=== PATIENT | female | born 1940 | race Caucasian/White ===

== ENCOUNTER 2025-03-14 14:05 | Inpatient (IN) ==
--- NOTE | 2025-03-14 14:26 | Emergency Department Note ---
Impression & Plan Chest pain, Acute hyponatremia, SOB (shortness of breath) ED Provider Note CHIEF COMPLAINT: Chest pain HISTORY OF PRESENTING ILLNESS: This 85-year-old female patient presents to the emergency department with her daughter for evaluation of chest pain and shortness of breath. The patient has had intermittent episodes of brief exertional chest pain and shortness of breath. However, on 03/06/2025 and yesterday she had more significant episodes of chest pain and shortness of breath that radiated to the right side of her neck. The patient states she has a history of a heart murmur and irregular heart rates at times. She is not on any blood thinners, but does take 81 mg aspirin a day. The patient saw her PCP on 03/07/2025 and had an EKG that was normal per patient. The patient cannot remember her last cardiac workup, but thinks it has been a while. The patient states that the symptoms are worse with walking or exertion. However, she has no symptoms at rest. She denies any abdominal pain, nausea, or vomiting. The patient was recently started on iron because of anemia. She has had some loose stools since starting the iron supplement, but otherwise denies any changes in her bowel movements. She denies any urinary symptoms. I reviewed the patient's PCP office visit note from 03/07/2025 through the [facility] system. The patient had described periodic episodes of chest discomfort with exertion that started 2 weeks prior to the office visit including the worst episode on 03/06/2025 when the patient was walking outside in and out of the gas station to pump gas. She developed substernal chest heaviness that radiated down her left arm and right arms. She had shortness of breath and heart palpitations at the same time. The symptoms lasted up to an hour, but resolved after resting further. EKG in the office showed sinus bradycardia without acute ST or T wave changes. Per the office visit note, the patient follows with cardiology for history of hypertensive heart disease, dyslipidemia, and aortic valve stenosis. Her last echo in 03/2024 suggested moderate aortic stenosis. The patient had a stress test on 04/2023 that was normal. She had a ZIO monitor that showed episodes of potential SVT versus AT, but no clear A-fib or flutter. No significant heart blocks or bradycardia arrhythmias. The readings were similar to her Zio patch from 08/2020. The patient is scheduled to follow-up with cardiology on 05/05/2025. She has had worsening anemia since 11/2024. She had seen GI in 12/2024 to discuss EGD/colonoscopy, but these are not scheduled until 06/2025. REVIEW OF SYSTEMS: See HPI for pertinent positives and pertinent negatives. ALLERGIES: NKDA - has irritation from adhesives MEDICATIONS: 81 mg aspirin, vitamin D supplements, calcium supplements, vitamins, cetirizine, Flonase, Norvasc, Lipitor, carvedilol, Valtrex as needed, valsartan hydrochlorothiazide, iron supplement, omeprazole 40 mg once a day, Cymbalta, Aldactone, Imdur PAST MEDICAL HISTORY: Hypertension, GERD, history of squamous cell carcinoma, history of herpes labialis, osteoporosis, mixed hyperlipidemia, history of basal cell cancer, hypertensive heart disease with chronic diastolic congestive heart failure, cataracts of both eyes, nonrheumatic aortic valve stenosis, chronic kidney disease stage III PHYSICAL EXAM: VITALS: Vitals are noted on the nurse's note and reviewed by myself. GENERAL: Non toxic, in no acute distress, non-diaphoretic. SKIN: Capillary refill <2 sec. EYES: PERRLA. EOMI. Conjunctivae without injection, sclerae without icterus. NOSE: Patent without discharge. MOUTH: Mucous membranes moist. Uvula midline. Airway patent. NECK: Supple without nuchal rigidity. HEART: Regular rate and rhythm without murmurs gallops or rubs. LUNGS: Clear to auscultation bilaterally without wheezes, rales or rhonchi. No retractions or accessory muscle use. ABDOMEN: Positive bowel sounds x 4. Normal tympanic percussion. Soft, nontender to palpation. No masses or hepatosplenomegaly. Gallagher sign negative. No CVA tenderness. No guarding, rigidity, or rebound tenderness. No focal RLQ or LLQ tenderness. NEURO: Patient was alert and oriented. No focal neurological deficits. DIFFERENTIAL DIAGNOSIS: Differential diagnosis includes angina, CA, pericarditis, myocarditis, aortic dissection, pleurisy, pneumothorax, PE, pneumonia, pneumomediastinum, esophagitis, esophageal spasm, GERD, perforated esophagus, perforated duodenal/gastric ulcer, pancreatitis, cholecystitis, costochondritis, musculoskeletal, bronchitis, URI, or others. ED COURSE AND MEDICAL DECISION MAKING: MEDICATIONS GIVEN: Normal saline solution 250 mL IV bolus. Aspirin 324 mg p.o. chewed. MONITOR: Continuous director of cardiac rehabilitation: Order was placed for continuous director of cardiac rehabilitation. Patient was placed on the director of cardiac rehabilitation and continuous pulse ox. Patient was noted to be in normal sinus rhythm at an initial rate of 64 bpm per my interpretation. EKG: EKG was interpreted by myself as sinus bradycardia with first-degree AV block at 49 bpm with no acute ST or T wave changes. INTERPRETATION OF LABS: I interpreted the labs with full lab results as below in the lab section of this note. Laboratory results pertinent to the emergent complaint are discussed in the MDM section below. The patient was advised to follow up with their PCP and/or specialist(s) for further outpatient monitoring and management of any abnormal results. INTERPRETATION OF IMAGING: Imaging studies were interpreted by myself and read by radiology as per the imaging section of this note. The patient was advised to follow up with their PCP and/or specialist(s) for further outpatient management of any non-emergent abnormal findings. Chest x-ray was negative for acute cardiopulmonary etiology. Hiatal hernia present. EXTERNAL RECORDS REVIEWED: I reviewed the patient's outpatient [facility] records as summarized above. CONSULTATIONS: On-call hospitalist [facility] SUMMARY: I examined the patient. The patient has been having periodic episodes of chest pain and shortness of breath with exertion. She had a significant episode on 03/06/2025 and again yesterday. She saw her PCP on 03/07/2025 with a normal EKG. The patient last had a stress test on 04/2023 as well as an echo on 03/2024 with her history of moderate aortic stenosis, but no other acute abnormalities per her PCP visit. The patient does have a history of chronic sinus bradycardia as well. An IV lock was placed and labs were drawn. The patient was given 250 mL normal saline solution bolus. She was given aspirin 324 mg p.o. chewed. She declined any medication for her symptoms while in the emergency department. She states that she only has symptoms with exertion. White blood cell count normal at 9.17. Hemoglobin low at 10.8. The patient's hemoglobin on 03/07/2025 was 11.7. Platelet count normal at 304. Coags were normal. Sodium low at 125. Her sodium on 03/07/2025 was 132. Glucose 123, but CMP otherwise normal. Magnesium normal. High-sensitivity troponin x 2 were normal. Lipase normal. TSH normal. Chest x-ray was negative for acute cardiopulmonary etiology. Hiatal hernia present. I had a meaningful discussion about this patient with Dr. Paredes who agrees with my assessment and the treatment plan. The patient has had exertional chest pain and we feel the patient requires admission for further evaluation and treatment. I spoke with the on-call hospitalist who agreed to admit the patient for further management. Please refer to their dictation for further details. The patient's care was transferred in stable condition. DIAGNOSIS: Chest pain Shortness of breath Hyponatremia Past Med/Surg History Problem List (Updated 03/14/25 @ 22:28 by Cindy Michael PA-C) SOB (shortness of breath) (Acute) Acute hyponatremia (Acute) Acute hyponatremia (HFpEF) heart failure with preserved ejection fraction Chest pain (Acute) Medical History (Updated 03/14/25 @ 22:28 by Cindy Michael PA-C) Anemia SVT (supraventricular tachycardia) Osteoporosis CKD (chronic kidney disease) stage 3, GFR 30-59 ml/min GERD (gastroesophageal reflux disease) Asymptomatic bradycardia HTN (hypertension) Aortic stenosis Surgical History (Updated 03/14/25 @ 19:00 by Camryn Blas MD) Hx of cholecystectomy History of appendectomy Family History (Updated 03/14/25 @ 19:01 by Camryn Blas MD) Other COPD (chronic obstructive pulmonary disease) Coronary heart disease Social History Smoking Status: Never smoker Preferred Language: [place] Feels Safe at Home: Yes Allergies Allergies Allergy/AdvReac Type Severity Reaction Status Date / Time lidocaine Allergy Unknown Unknown - Unverified 03/14/25 17:54 On file w/ [facility] Home Meds Home Medications Medication Instructions Recorded Confirmed amlodipine 10 mg tablet 10 mg PO QAM 03/14/25 03/14/25 atorvastatin 40 mg tablet 40 mg PO QAM 03/14/25 03/14/25 carvedilol 25 mg tablet 25 mg PO BIDWMEAL 03/14/25 03/14/25 duloxetine 30 mg capsule,delayed 30 mg PO DAILY 03/14/25 03/14/25 release isosorbide mononitrate 120 mg 120 mg PO QAM 03/14/25 03/14/25 tablet,extended release 24 hr omeprazole 40 mg capsule,delayed 40 mg PO DAILYBB 03/14/25 03/14/25 release spironolactone 25 mg tablet 12.5 mg PO QAM 03/14/25 03/14/25 valsartan 320 1 tab PO QAM 03/14/25 03/14/25 mg-hydrochlorothiazide 25 mg tablet Results & Data (ED) Vital Signs Vital Signs - 24 hr 03/14/25 14:11 03/14/25 14:29 03/14/25 14:42 Temperature 36.3 C L Temperature Source Oral Pulse Rate 51 L 52 L 53 L Pulse Rate [Apical] Pulse Rate from SpO2 Sensor Pulse Rhythm Regular Respiratory Rate 21 17 Respiratory Effort / Characteristics Non-Labored Spontaneous Respiratory Depth Normal Respiratory Pattern Regular Blood Pressure 116/62 Blood Pressure [Left Arm] Blood Pressure Mean 80 Blood Pressure Mean [Left Arm] Blood Pressure Position [Left Arm] Pulse Oximetry 99 97 Oxygen Delivery Method Room Air Room Air Sepsis Recent Fever Within 48 Hours No Sepsis New/Unexplained Change in Mental Status N/A Sepsis Action Taken by Nursing No Action Required 03/14/25 15:30 03/14/25 15:30 03/14/25 16:00 Temperature Temperature Source Pulse Rate 50 L 55 L 55 L Pulse Rate [Apical] Pulse Rate from SpO2 Sensor 51 L Pulse Rhythm Respiratory Rate 17 13 14 Respiratory Effort / Characteristics Respiratory Depth Respiratory Pattern Blood Pressure 123/65 123/65 137/67 Blood Pressure [Left Arm] Blood Pressure Mean 84 87 106 Blood Pressure Mean [Left Arm] Blood Pressure Position [Left Arm] Pulse Oximetry 98 99 100 Oxygen Delivery Method Room Air Room Air Room Air Sepsis Recent Fever Within 48 Hours Sepsis New/Unexplained Change in Mental Status Sepsis Action Taken by Nursing 03/14/25 16:30 03/14/25 17:00 03/14/25 17:03 Temperature Temperature Source Pulse Rate 50 L 58 L Pulse Rate [Apical] Pulse Rate from SpO2 Sensor 50 L 57 L Pulse Rhythm Respiratory Rate 16 20 Respiratory Effort / Characteristics Respiratory Depth Respiratory Pattern Blood Pressure 134/67 139/73 Blood Pressure [Left Arm] Blood Pressure Mean 89 106 Blood Pressure Mean [Left Arm] Blood Pressure Position [Left Arm] Pulse Oximetry 96 98 Oxygen Delivery Method Room Air Room Air Sepsis Recent Fever Within 48 Hours Sepsis New/Unexplained Change in Mental Status Sepsis Action Taken by Nursing 03/14/25 18:21 03/14/25 18:29 03/14/25 19:20 Temperature Temperature Source Pulse Rate 56 L Pulse Rate [Apical] 56 L Pulse Rate from SpO2 Sensor Pulse Rhythm Respiratory Rate 17 Respiratory Effort / Characteristics Non-Labored Spontaneous Respiratory Depth Normal Respiratory Pattern Regular Blood Pressure Blood Pressure [Left Arm] 117/58 L Blood Pressure Mean Blood Pressure Mean [Left Arm] 77 Blood Pressure Position [Left Arm] Semi-fowlers Pulse Oximetry 97 95 Oxygen Delivery Method Room Air Room Air Sepsis Recent Fever Within 48 Hours Sepsis New/Unexplained Change in Mental Status Sepsis Action Taken by Nursing 03/14/25 19:21 03/14/25 20:17 03/14/25 21:03 Temperature Temperature Source Pulse Rate 66 60 61 Pulse Rate [Apical] Pulse Rate from SpO2 Sensor Pulse Rhythm Respiratory Rate 21 18 20 Respiratory Effort / Characteristics Respiratory Depth Respiratory Pattern Blood Pressure 136/64 136/75 116/48 L Blood Pressure [Left Arm] Blood Pressure Mean 88 99 70 Blood Pressure Mean [Left Arm] Blood Pressure Position [Left Arm] Pulse Oximetry 97 98 96 Oxygen Delivery Method Room Air Room Air Room Air Sepsis Recent Fever Within 48 Hours Sepsis New/Unexplained Change in Mental Status Sepsis Action Taken by Nursing Laboratory Data 03/14/25 14:30 03/14/25 17:39 Lab Results 03/14/25 03/14/25 03/14/25 Range/Units 14:30 17:37 17:39 WBC 9.17 (4.8-10.8) K/ul RBC 3.42 L (4.20-5.40) M/uL Hgb 10.8 L (12.0-16.0) g/dl Hct 31.1 L (37.0-47.0) % MCV 90.9 (80.0-100.0) fL MCH 31.6 (25.0-34.0) pg MCHC 34.7 (32.0-36.0) g/dL RDW Std Deviation 42.2 (36.4-46.3) fL RDW Coeff of [place] 13.0 (11.5-14.5) % Plt Count 304 (130-400) K/uL MPV 8.7 L (9.4-12.4) fL Immature Gran % (Auto) 0.4 % Neut % (Auto) 75.8 % Lymph % (Auto) 8.3 % [place] % (Auto) 11.6 % Eos % (Auto) 3.5 % Baso % (Auto) 0.4 % Neut # (Auto) 6.95 H (1.40-6.50) K/uL Lymph # (Auto) 0.76 L (1.20-3.40) K/uL [place] # (Auto) 1.06 H (0.11-0.59) K/uL Eos # (Auto) 0.32 (0.00-0.50) K/uL Baso # (Auto) 0.04 (0.00-0.20) K/uL Immature Gran # (Auto) 0.04 (0.01-0.20) K/uL PT 10.2 (9.0-12.0) Seconds INR 0.9 (0.9-1.1) APTT 24 (21-31) Seconds PTT Ratio 0.9 Sodium 125 L 126 L (136-145) mmol/L Potassium 5.0 4.5 (3.5-5.1) mmol/L Chloride 90 L 92 L (98-107) mmol/L Carbon Dioxide 28 27 (21-32) mmol/L Anion Gap 7 7 (3-11) BUN 17 17 (6-23) mg/dl Creatinine 1.05 0.93 (0.6-1.2) mg/dl Est Cr Clr Drug Dosing 40.6 45.8 ml/min eGFR 51.75 59.86 BUN/Creatinine Ratio 16.2 18.3 (10-20) Glucose 123 H 117 H (70-99(Fasting)) mg/dl Osmolality 265 L (280-300) mOsm/kg Calcium 9.9 9.6 (8.6-10.3) mg/dl Magnesium 1.9 (1.7-2.4) mg/dl Total Bilirubin 0.7 (0.2-1.0) mg/dl AST 13 (13-39) U/L ALT 11 (7-52) U/L Alkaline Phosphatase 49 (34-104) U/L Troponin I High Sens 3.5 3.7 (0-14) pg/ml B-Natriuretic Peptide 72 (0-100) pg/ml Total Protein 6.6 (6.0-8.3) gm/dl Albumin 4.1 (3.4-5.0) gm/dl Globulin 2.5 (2.5-4.0) gm/dl Albumin/Globulin Ratio 1.6 (0.9-2) Lipase 9 L (11-82) U/L TSH 1.783 (0.300-4.500) uIu/ml Urine Color Yellow Urine Appearance Clear (Clear) Urine pH 7.0 (4.5-7.5) Ur Specific [place] 1.007 (1.000-1.030) Urine Protein Negative (Negative) Urine Glucose (UA) Negative (Negative) Urine Ketones Negative (Negative) Urine Blood Negative (Negative) Urine Nitrite Negative (Negative) Urine Bilirubin Negative (Negative) Urine Urobilinogen Negative (Negative) Ur Leukocyte Esterase 1+ H (Negative) Urine WBC (Auto) 6-10 H (0-5) /hpf Urine RBC (Auto) 0-2 (0-2) /hpf U Hyaline Cast (Auto) 0-2 (0-2) /lpf U Epithel Cells (Auto) 3-5 H (0-2) /hpf Urine Bacteria (Auto) None Seen (None Seen) Urine Osmolality 208 L (500-800) mOsm/kg Urine Sodium 34 mmol/L Urine Potassium 33.2 mmol/L Urine Chloride 38 mmol/L Urine Comment Administered Medications Carvedilol (Carvedilol 25 Mg Tab) 25 mg PO BIDM [facility] Stop: 04/13/25 17:59 Last Admin: 03/14/25 20:01 Dose: 25 mg Documented By: ANNE Heparin Sodium/Dextrose (Heparin 61634 Unit/500 Ml D5w) 25,000 units in 500 mls @ 24 mls/hr IV .[id number] [facility]; Protocol Stop: 04/13/25 18:44 Last Admin: 03/14/25 19:17 Dose: 1,200 units/hr, 24 mls/hr Documented By: ANNE Co-signed By: Discontinued Medications Aspirin (Aspirin Chew 324 Mg) 324 mg PO NOW STA Stop: 03/14/25 14:24 Last Admin: 03/14/25 14:34 Dose: 324 mg Documented By: JUAN MIGUEL Furosemide (Furosemide Inj 20 Mg/2 Ml Vial) 20 mg IV ONE ONE Stop: 03/14/25 17:18 Last Admin: 03/14/25 18:22 Dose: 20 mg Documented By: TRESA Heparin Sodium/Dextrose (Heparin Iv Adult Wt-Based Standard *No* Initial Bolus Protocol) 1 each IV ONE STA; Protocol Stop: 03/14/25 18:30 Last Admin: 03/14/25 19:01 Dose: Not Given Documented By: BONNY Sodium Chloride (Nss) 250 mls @ 999 mls/hr IV .Q16M ONE Stop: 03/14/25 14:38 Last Infusion: 03/14/25 16:16 Dose: Infused Documented By: Admin: 03/14/25 14:35 Dose: 999 mls/hr Documented By: JUAN MIGUEL Ioversol (Optiray 320 125ml) 117 ml IV ONCE ONE Stop: 03/14/25 19:02 Last Admin: 03/14/25 19:02 Dose: 117 ml Documented By: JODI Imaging Data Radiologist's Impression: Chest X-Ray 03/14/25 14:11 XR chest 1V portable CLINICAL HISTORY: Chest pain, nonspecific COMPARISON STUDY: No previous studies for comparison. FINDINGS: Lung volumes are normal. Lungs are clear. There is no pneumothorax or pleural effusion. Cardiac size is normal. A moderate sized hiatal hernia is noted. There is no evidence for pulmonary edema. IMPRESSION: 1. No acute cardiopulmonary findings. 2. Hiatal hernia. ACT 112: Negative or not required by law. Electronically signed by: Donavan Marie M.D. 03/14/2025 2:49 PM Venous Doppler Study 03/14/25 17:17 Clinical History: Swelling Technique: Venous ultrasound evaluation was performed utilizing grayscale, color Doppler and wave form evaluation. Images were also obtained with and without compression Findings: There is apparent occlusive thrombus in the left peroneal vein The bilateral common femoral, superficial femoral, popliteal, and right calf veins demonstrate normal anechoic lumens with full compressibility. Normal flow is seen on color Doppler images. Expected waveforms were produced with augmentation maneuvers Impression: 1. DVT in the left calf 2. No evidence of right leg deep venous thrombosis ACT 112: Positive. There are findings on this exam that require communication between the performing entity and the patient following Patient Test Result Information Act ([place] ACT 112) guidelines. Electronically signed by Edward Nazario 03-14-2025 6:16 PM Chest CTA 03/14/25 18:29 EXAM: CT angio chest PE protocol CLINICAL HISTORY: PE TECHNIQUE: CT angiography of the chest was performed with and without intravenous contrast with the following protocol: axial images with, reconstructed coronal and sagittal images. Non-contrast images were initially acquired, followed by contrast-enhanced images in arterial and venous phases. Intravenous contrast [117ml of 320] was administered using automated injection techniques. Bolus tracking was employed to optimize arterial phase imaging. One of these 3D techniques was utilized: Maximum Intensity Pixel (MIP), 3D Reconstructed Images, Volume Rendered Images, Surface Shaded Rendering. One of the following dose reduction techniques was utilized for this exam: Automated exposure control, adjustment of the mA and/or kV according to patient size, and use of iterative reconstruction. COMPARISON: No prior studies available for comparison FINDINGS: Aorta and Great Vessels: Ascending Aorta: Normal in caliber, no aneurysm, dissection, or significant atherosclerosis. Aortic Arch: Normal in caliber, no aneurysm, dissection. Atherosclerotic changes, Descending Aorta: Normal in caliber, no aneurysm, dissection, or significant atherosclerosis. Pulmonary Arteries: The main pulmonary artery and its branches are patent. No evidence of pulmonary embolism or significant stenosis. Heart: Cardiac Chambers: Normal in size. No evidence of cardiomegaly. Pericardium: No pericardial effusion or thickening. Lungs and Pleura: Few nodules in the right lower lobe measuring up to 5mm. Lungs are clear without evidence of consolidation, collapse, or focal lesions. No pleural effusion. Right posterior pleural thickening. Mediastinum: No mediastinal mass or abnormal lymphadenopathy. Normal appearance of the trachea and central bronchi. Hiatal hernia with herniated proximal and mid stomach. Hilar Structures: Hilar structures are normal without enlargement. Chest Wall: No mass lesions or abnormalities in the chest wall. Vascular Structures: Superior Vena Cava: Patent without evidence of stenosis or thrombus. Inferior Vena Cava: Patent without evidence of stenosis or thrombus. Bones and Soft Tissues: No fractures, lytic, or blastic lesions of the visualized bony structures. Soft tissues are unremarkable. Degenerative changes in the spine. A 3.3 right renal cortical cyst. Small splenic calcification. IMPRESSION: 1. No evidence of pulmonary embolism. 2. Few pulmonary nodules in the right lower lobe measuring up to 5mm. No routine follow up if low risk as per Fleischner Society Guidelines. 3. No consolidation or pleural effusion. 4. Hiatal hernia. Electronically signed by Momo Bran 03-14-2025 8:31 PM Discharge Plan Visit Data Chief Complaint: Chest Pain Stated Complaint: CHEST TIGHTNESS/SOB ED Provider: Gigi Paredes ED Midlevel Provider: Cindy Michael Discharge Problem: Chest pain, Acute hyponatremia, SOB (shortness of breath) Patient Disposition: Admitted As Inpatient Condition: Fair Forms Stand Alone Forms: My [facility] Prescriptions Prescriptions: No Action atorvastatin 40 mg tablet 40 mg PO QAM carvedilol 25 mg tablet 25 mg PO BIDWMEAL omeprazole 40 mg capsule,delayed release(DR/EC) 40 mg PO DAILYBB spironolactone 25 mg tablet 12.5 mg PO QAM isosorbide mononitrate 120 mg tablet extended release 24 hr 120 mg PO QAM amlodipine 10 mg tablet 10 mg PO QAM duloxetine 30 mg capsule,delayed release(DR/EC) 30 mg PO DAILY valsartan-hydrochlorothiazide 320-25 mg tablet 1 tab PO QAM Referrals Referrals: PCP,NO [Physician] - Discharge Problem: Chest pain Qualifiers: Chest pain type: unspecified Qualified Code(s): R07.9 - Chest pain, unspecified
[2025-03-14] MEDS: ASPIRIN CHEW 324 MG PO STA (14:34)
[2025-03-14] MEDS: SODIUM CHLORIDE 0.9% 250 ML IV ONE (14:35)
[2025-03-14 14:45] LABS: Hematocrit (blood only) 31.1 % (37.0-47.0); Hemoglobin 10.8 g/dl (12.0-16.0); Immature Granulocytes # (auto) 0.04 K/uL (0.01-0.20); Immature Granulocytes % (auto) 0.4 %; Mean Corpuscular Hemoglobin 31.6 pg (25.0-34.0); Mean Corpuscular Volume 90.9 fL (80.0-100.0); Platelet Count 304 K/uL (130-400); RDW Standard Deviation 42.2 fL (36.4-46.3); Red Blood Count 3.42 M/uL (4.20-5.40); White Blood Count 9.17 K/ul (4.8-10.8)
--- NOTE | 2025-03-14 14:50 | XRay Report ---
XR chest 1V portable CLINICAL HISTORY: Chest pain, nonspecific COMPARISON STUDY: No previous studies for comparison. FINDINGS: Lung volumes are normal. Lungs are clear. There is no pneumothorax or pleural effusion. Car diac size is normal. A moderate sized hiatal hernia is noted. There is no evidence for pulmonary ted a. IMPRESSION: 1. No acute cardiopulmonary findings. 2. Hiatal hernia. ACT 112: Negative or not required by law. Electronically signed by: Donavan Marie M.D. 03/14/2025 2:49 PM
[2025-03-14 15:07] LABS: Alanine Aminotransferase 11.0 U/L (7-52); Albumin Globulin Ratio 1.6 (0.9-2); Alkaline Phosphatase 49.0 U/L (34-104); Anion Gap 7.0 (3-11); Bilirubin,Total 0.7 mg/dl (0.2-1.0); Blood Urea Nitrogen 17.0 mg/dl (6-23); Calcium 9.9 mg/dl (8.6-10.3); Carbon Dioxide 28.0 mmol/L (21-32); Chloride 90.0 mmol/L (98-107); Creatinine Clr Calc Pharmacy 40.6 ml/min; Globulin 2.5 gm/dl (2.5-4.0); Glucose 123.0 mg/dl (70-99(Fasting)); Lipase 9.0 U/L (11-82); Magnesium 1.9 mg/dl (1.7-2.4); Potassium 5.0 mmol/L (3.5-5.1); Sodium 125.0 mmol/L (136-145); Total Protein 6.6 gm/dl (6.0-8.3)
[2025-03-14 15:34] LABS: INR 0.9 (0.9-1.1); Partial Thromboplastin Time 24 Seconds (21-31); Prothrombin Time 10.2 Seconds (9.0-12.0)
--- NOTE | 2025-03-14 16:12 | Emergency Department Note ---
ED Visit Note I was consulted in regards to the patient's presentation and plan of care by the Advanced Practice Provider. I engaged in a detailed/meaningful discussion with the Advanced Practice Provider in regards to this patient's workup and plan of care. I performed a substantiative portion of the medical decision making following discussion with the Advanced Practice Provider. Please see the Advanced Practice Provider's separate documentation for full details of the patient's visit. I agree with the assessment and plan of Cindy Michael PA-C. Gigi Paredes, DO Emergency Medicine .
--- NOTE | 2025-03-14 16:45 | History & Physical Report ---
Date of Service March 14, 2025 Assessment & Plan (1) Chest pain: (2) Acute hyponatremia: (3) (HFpEF) heart failure with preserved ejection fraction: Plan Ms. An is an 85 year old woman with past medical history remarkable for HFpEF, CKDIII, CAD, aortic valve stenosis, SVT, chronic back pain, recent right meniscus tear, GERD, anemia admitted for evaluation of chest pain. Noted to have hyponatremia, likely multifactorial given multiple medications and ongoing pain etc. Also, noted to have DVT in LLE, therefore Chest CT PE will be ordered to eval for pulm embolism potentially contributing to symptoms. #Atypical angina #Chronic heart failure with preserved EF #Aortic Stenosis BNP 72, trop negative x 3 episodic x 3 weeks, hx of as and HFpEF; does not appear volume overloaded however BLE noted ECHO ordered Trend trops monitor on tele continue Imdur 120mg daily continue Valsartan, d/c combo hctz 2/2 hyponatremia hold spironolactone iso hyponatremia continue amlodipine, consider d/c 2/2 BLE edema #Acute LLE DVT #BLE edema, R>L #Right meniscal tear Right leg chronically edematous per patient, but LLE now swollen Doppler ordered---> acute DVT start heparin drip given concerns of chest pain and newly found DVT will do chest CT PE #Acute hyponatremia multifactorial, possible 2/2 medications--noted to be as low as 126 as op discontinue HCTZ hold spironolactone and duloxetine trend bmp q6 FR 2L s/p lasix x1 consult nephrology #Sinus bradycardia #SVT AV block iso coreg will continue coreg with hold parameter <55 monitor on tele #CKDIII stable at this time avoid nephrotoxic agents #Chronic anemia stable at this time CTM #GERD continue ppi #Ambulatory dysfunction PT/OT DVT heparin drip Full code Froilan WINTER Admit Med tele Admission and Anticipated Discharge Date Admission Date: Time spent evaluating patient, direct bedside care, chart review, placing orders, interpretation of diagnostic studies, discussion with consultants, p atient, and family members, as well as other required patient management activities is 80 minutes. History of Present Illness Chief Complaint: chest pain Primary Care Provider: Meño Mcgovern PA-C Ms. An is an 85 year old woman with past medical history remarkable for HFpEF, CKDIII, CAD, aortic valve stenosis, SVT, chronic back pain, recent right meniscus tear, GERD, anemia presented to [facility] ED due to three weeks of MATA and c hest pain. Patient states she has been experiencing episodes of chest pain for a few weeks. She notes the pain to be like a pressure, but also every so often sharp and stabbing. She reports that intermittently these episodes also have diaphoresis and the sensation like she may faint; however, she has not. She reports intermittent palpitations. She does note that her right lower extremity has been swollen since her meniscal tear, but that her left leg is also swelling too in the last few weeks as well. . Last echo 03/2024 suggested moderate per cardio interpretation.Stress test 04/2023 normal. Her PCP did increase her Imdur from 60mg daily to 120mg daily with no clear reduction in symptoms. She denies fevers chills or other concerns. She reports she is otherwise fairly independent. She denies tobacco use, endorses occasional etoh, and denies illicits. In the ED, vitals were notable for BP of 110s-120s HR of 50s, and O2 sat of high 90s on room air Imaging revealed no pulm edema EKG QTc 397 sinus jose with AVblock ED interventions: asa 324, 250cc Patient to be admitted to med/tele for further evaluation and management of chest pain Allergies Allergy/AdvReac Type Severity Reaction Status Date / Time lidocaine Allergy Unknown Unknown - Unverified 03/14/25 17:54 On file w/ [facility] Home Medications Medication Instructions Recorded Confirmed Type amlodipine 10 mg tablet 10 mg PO QAM 03/14/25 03/14/25 History atorvastatin 40 mg tablet 40 mg PO QAM 03/14/25 03/14/25 History carvedilol 25 mg tablet 25 mg PO BIDWMEAL 03/14/25 03/14/25 History duloxetine 30 mg capsule,delayed 30 mg PO DAILY 03/14/25 03/14/25 History release isosorbide mononitrate 120 mg 120 mg PO QAM 03/14/25 03/14/25 History tablet,extended release 24 hr omeprazole 40 mg capsule,delayed 40 mg PO DAILYBB 03/14/25 03/14/25 History release spironolactone 25 mg tablet 12.5 mg PO QAM 03/14/25 03/14/25 History valsartan 320 1 tab PO QAM 03/14/25 03/14/25 History mg-hydrochlorothiazide 25 mg tablet Past Med/Surg History Problem List (Updated 03/14/25 @ 19:00 by Camryn Blas MD) Acute hyponatremia (HFpEF) heart failure with preserved ejection fraction Chest pain Medical History (Updated 03/14/25 @ 19:00 by Camryn Blas MD) Anemia SVT (supraventricular tachycardia) Osteoporosis CKD (chronic kidney disease) stage 3, GFR 30-59 ml/min GERD (gastroesophageal reflux disease) Asymptomatic bradycardia HTN (hypertension) Aortic stenosis Surgical History (Updated 03/14/25 @ 19:00 by Camryn Blas MD) Hx of cholecystectomy History of appendectomy Family History (Updated 03/14/25 @ 19:01 by Camryn Blas MD) Other COPD (chronic obstructive pulmonary disease) Coronary heart disease Social History Smoking Status: Never smoker Preferred Language: Belarusian Feels Safe at Home: Yes Review of Systems Review of Systems: Constitutional: (-) fever/chills, (-) recent loss of weight, (-) appetite changes, (-) night sweats. Head: (-) headache, (-) dizziness. Eye: (-) blurring of vision, (-) double vision, (-) redness. Ear: (-) hearing loss, (-) discharge, (-) vertigo Nose: (-) discharge, (-) bleeding, (-) congestion, (-) post nasal drip. Throat: (-) sore throat, (-) hoarseness of voice, (-) odynophagia. Cardiovascular: (+) chest pain, (-) palpitations, (-) syncope, (-) orthopnea, (- ) PND, (+) leg swelling. Respiratory: (+) shortness of breath, (-) cough, (-) wheezing, (-) hemoptysis. Neuro: (-) weakness in extremities, (-) numbness, (-) tingling, (-) tremor. Gastrointestinal: (-) belly pain, (-) belly distension, (-) nausea, (-) vomiting, (-) diarrhea, (-) constipation Genitourinary: (-) hematuria, (-) dysuria, (-) polyuria, (-) hesitancy, (-) frequency, (-) urinary incontinence. Musculoskeletal: (-) myalgia, (-) arthralgia. Skin: (-) rashes. Endocrine: (-) heat/cold intolerance. Psychiatry: (-) depression, (-) hallucination. Physical Exam Physical Exam: GENERAL APPEARANCE: AxOx4, generally well-appearing female appears younger than stated age, no acute distress. HEENT: NC, AT. MMM. EOMI, clear conjunctiva, oropharynx clear. NECK: Supple without lymphadenopathy. No stiffness or restricted ROM. HEART: Normal rate and regular rhythm, normal S1/S1, no m/r/g LUNGS: CTAB, moving air well. No crackles or wheezes are heard. ABDOMEN: Soft, nontender, nondistended with good bowel sounds heard. BACK: No CVAT, no obvious deformity. EXTREMITIES: Without cyanosis, clubbing or edema. NEUROLOGICAL: Grossly nonfocal. Alert and oriented, moving all 4 extremities. CN not formally tested but appear grossly intact. Observed to ambulate with normal gait. Skin: Warm and dry without any rash. Results & Data Results & Data Vital Signs (Past 12 Hours) Vital Signs Temp Pulse Resp BP Pulse Ox O2 Del Method 03/14/25 16:00 55 L 14 137/67 100 Room Air 03/14/25 15:30 55 L 13 123/65 99 Room Air 03/14/25 15:30 50 L 17 123/65 98 Room Air 03/14/25 14:42 53 L 17 97 Room Air 03/14/25 14:29 52 L 03/14/25 14:11 36.3 C L 51 L 21 116/62 99 Room Air Laboratory Results Short CBC 03/14/25 Range/Units 14:30 WBC 9.17 (4.8-10.8) K/ul Hgb 10.8 L (12.0-16.0) g/dl Hct 31.1 L (37.0-47.0) % Plt Count 304 (130-400) K/uL BMP 03/14/25 03/14/25 14:30 17:39 Sodium 125 L 126 L Potassium 5.0 4.5 Chloride 90 L 92 L Carbon Dioxide 28 27 BUN 17 17 Creatinine 1.05 0.93 Glucose 123 H 117 H Calcium 9.9 9.6 Liver Function 08/08/25 Range/Units 14:30 Total Bilirubin 0.7 (0.2-1.0) mg/dl AST 13 (13-39) U/L ALT 11 (7-52) U/L Alkaline Phosphatase 49 (34-104) U/L Albumin 4.1 (3.4-5.0) gm/dl Urine 03/14/25 Range/Units 17:37 Urine Color Yellow Urine Appearance Clear (Clear) Urine pH 7.0 (4.5-7.5) Ur Specific [place] 1.007 (1.000-1.030) Urine Protein Negative (Negative) Urine Glucose (UA) Negative (Negative) Diagnostic Findings Chest X-Ray 03/14/25 14:11 XR chest 1V portable CLINICAL HISTORY: Chest pain, nonspecific COMPARISON STUDY: No previous studies for comparison. FINDINGS: Lung volumes are normal. Lungs are clear. There is no pneumothorax or pleural effusion. Cardiac size is normal. A moderate sized hiatal hernia is noted. There is no evidence for pulmonary edema. IMPRESSION: 1. No acute cardiopulmonary findings. 2. Hiatal hernia. ACT 112: Negative or not required by law. Electronically signed by: Donavan Marie M.D. 03/14/2025 2:49 PM Venous Doppler Study 03/14/25 17:17 Clinical History: Swelling Technique: Venous ultrasound evaluation was performed utilizing grayscale, color Doppler and wave form evaluation. Images were also obtained with and without compression Findings: There is apparent occlusive thrombus in the left peroneal vein The bilateral common femoral, superficial femoral, popliteal, and right calf veins demonstrate normal anechoic lumens with full compressibility. Normal flow is seen on color Doppler images. Expected waveforms were produced with augmentation maneuvers Impression: 1. DVT in the left calf 2. No evidence of right leg deep venous thrombosis ACT 112: Positive. There are findings on this exam that require communication between the performing entity and the patient following Patient Test Result Information Act ([place] ACT 112) guidelines. Electronically signed by Edward Nazario 03-14-2025 6:16 PM Medications Administered Home Medications Medication Instructions Recorded Confirmed Last Taken amlodipine 10 mg tablet 10 mg PO QAM 03/14/25 03/14/25 Unknown atorvastatin 40 mg tablet 40 mg PO QAM 03/14/25 03/14/25 Unknown carvedilol 25 mg tablet 25 mg PO BIDWMEAL 03/14/25 03/14/25 Unknown duloxetine 30 mg capsule,delayed 30 mg PO DAILY 03/14/25 03/14/25 Unknown release isosorbide mononitrate 120 mg 120 mg PO QA 03/14/25 03/14/25 Unknown tablet,extended release 24 hr omeprazole 40 mg capsule,delayed 40 mg PO DAILYBB 03/14/25 03/14/25 Unknown release spironolactone 25 mg tablet 12.5 mg PO [facility] 03/14/25 03/14/25 Unknown valsartan 320 1 tab PO [facility] 03/14/25 03/14/25 Unknown mg-hydrochlorothiazide 25 mg tablet Active Medications Generic Name Dose Route Start Last Admin Trade Name Freq PRN Reason Stop Dose Admin Heparin Sodium/Dextrose 25,000 units in 500 mls @ 24 mls/hr 03/14/25 18:45 03/14/25 19:17 Heparin 07721 Unit/500 Ml D5w IV 04/13/25 18:44 1,200 units/hr .[id number] ELENA 24 mls/hr Administration Protocol 1,200 UNITS/HR
[2025-03-14 17:20] LABS: Thyroid Stimulating Hormone 1.783 uIu/ml (0.300-4.500)
--- NOTE | 2025-03-14 17:45 | Electrocardiogram Report ---
Test Reason : Blood Pressure : */* mmHG Vent. Rate : 49 BPM Atrial Rate : 49 BPM P-R Int : 236 ms QRS Dur : 86 ms QT Int : 440 ms P-R-T Axes : 59 44 58 degrees QTcB Int : 397 ms Sinus bradycardia with 1st degree A-V block Abnormal ECG No previous ECGs available Confirmed by George Jarvis ([id number]) on 03/14/2025 5:44:55 PM Referred By: Meño Mcgovern Confirmed By: George Jarvis
[2025-03-14 17:57] LABS: Appearance Urine Clear (Clear); Bacteria Urine Automated None Seen (None Seen); Cast Urine Automated 0-2 /lpf (0-2); Glucose Urine UA Negative (Negative); RBC Urine Automated 0-2 /hpf (0-2)
[2025-03-14 18:14] LABS: Anion Gap 7.0 (3-11); Blood Urea Nitrogen 17.0 mg/dl (6-23); Calcium 9.6 mg/dl (8.6-10.3); Carbon Dioxide 27.0 mmol/L (21-32); Chloride 92.0 mmol/L (98-107); Creatinine Clr Calc Pharmacy 45.8 ml/min; Glucose 117.0 mg/dl (70-99(Fasting)); Potassium 4.5 mmol/L (3.5-5.1); Sodium 126.0 mmol/L (136-145)
--- NOTE | 2025-03-14 18:17 | Ultrasound Report ---
Clinical History: Swelling Technique: Venous ultrasound evaluation was performed utilizing grayscale, color Doppler and wave form evaluation. Images were also obtained with and without compression Findings: There is apparent occlusive thrombus in the left peroneal vein The bilateral common femoral, superficial femoral, popliteal, and right calf veins demonstrate normal anechoic lumens with full compressibility. Normal flow is seen on color Doppler images. Expected waveforms were produced with augmentation maneuvers Impression: 1. DVT in the left calf 2. No evidence of right leg deep venous thrombosis ACT 112: Positive. There are findings on this exam that require communication between the performing entity and the patient following Patient Test Result Information Act ([place] ACT 112) guidelines. Electronically signed by Edward Nazario 03-14-2025 6:16 PM
[2025-03-14] MEDS: FUROSEMIDE INJ 20 MG/2 ML VIAL IV ONE (18:22)
[2025-03-14] MEDS: Heparin IV Adult Wt-Based Standard *NO* INITIAL Bolus Protocol IV STA (19:01)
[2025-03-14] MEDS: OPTIRAY 320 125ml IV ONE (19:02)
[2025-03-14] MEDS: HEPARIN 25000 UNIT/500 ML D5W 25,000 UNITS/500 ML BAG IV SCH (19:17)
--- NOTE | 2025-03-14 20:31 | CT Scan Report ---
EXAM: CT angio chest PE protocol CLINICAL HISTORY: PE TECHNIQUE: CT angiography of the chest was performed with and without intravenous contrast with the following protocol: axial images with, reconstructed coronal and sagittal images. Non-contrast images were initially acquired, followed by contrast-enhanced images in arterial and venous phases. Intravenous contrast [117ml of 320] was administered using automated injection techniques. Bolus tracking was employed to optimize arterial phase imaging. One of these 3D techniques was utilized: Maximum Intensity Pixel (MIP), 3D Reconstructed Images, Volume Rendered Images, Surface Shaded Rendering. One of the following dose reduction techniques was utilized for this exam: Automated exposure control, adjustment of the mA and/or kV according to patient size, and use of iterative reconstruction. COMPARISON: No prior studies available for comparison FINDINGS: Aorta and Great Vessels: Ascending Aorta: Normal in caliber, no aneurysm, dissection, or significant atherosclerosis. Aortic Arch: Normal in caliber, no aneurysm, dissection. Atherosclerotic changes, Descending Aorta: Normal in caliber, no aneurysm, dissection, or significant atherosclerosis. Pulmonary Arteries: The main pulmonary artery and its branches are patent. No evidence of pulmonary embolism or significant stenosis. Heart: Cardiac Chambers: Normal in size. No evidence of cardiomegaly. Pericardium: No pericardial effusion or thickening. Lungs and Pleura: Few nodules in the right lower lobe measuring up to 5mm. Lungs are clear without evidence of consolidation, collapse, or focal lesions. No pleural effusion. Right posterior pleural thickening. Mediastinum: No mediastinal mass or abnormal lymphadenopathy. Normal appearance of the trachea and central bronchi. Hiatal hernia with herniated proximal and mid stomach. Hilar Structures: Hilar structures are normal without enlargement. Chest Wall: No mass lesions or abnormalities in the chest wall. Vascular Structures: Superior Vena Cava: Patent without evidence of stenosis or thrombus. Inferior Vena Cava: Patent without evidence of stenosis or thrombus. Bones and Soft Tissues: No fractures, lytic, or blastic lesions of the visualized bony structures. Soft tissues are unremarkable. Degenerative changes in the spine. A 3.3 right renal cortical cyst. Small splenic calcification. IMPRESSION: 1. No evidence of pulmonary embolism. 2. Few pulmonary nodules in the right lower lobe measuring up to 5mm. No routine follow up if low risk as per Fleischner Society Guidelines. 3. No consolidation or pleural effusion. 4. Hiatal hernia. Electronically signed by Moom Bran 03-14-2025 8:31 PM
[2025-03-14] MEDS ORDERED: NITROGLYCERIN SL 0.4 MG/TAB TAB SL PRN (23:11)
[2025-03-14] MEDS: ACETAMINOPHEN 325 MG TAB PO PRN (23:56)
[2025-03-15 01:32] LABS: ANTI-Xa, UFH(UnfractionatedHep 0.59 IU/ml (0.3-0.7)
[2025-03-15 06:12] LABS: Hematocrit (blood only) 29.1 % (37.0-47.0); Hemoglobin 10.0 g/dl (12.0-16.0); Mean Corpuscular Hemoglobin 31.3 pg (25.0-34.0); Mean Corpuscular Volume 91.2 fL (80.0-100.0); Platelet Count 279 K/uL (130-400); RDW Standard Deviation 42.0 fL (36.4-46.3); Red Blood Count 3.19 M/uL (4.20-5.40); White Blood Count 6.21 K/ul (4.8-10.8)
[2025-03-15 06:32] LABS: Magnesium 1.9 mg/dl (1.7-2.4)
[2025-03-15 07:37] LABS: ANTI-Xa, UFH(UnfractionatedHep 0.93 IU/ml (0.3-0.7)
[2025-03-15] MEDS: SPIRONOLACTONE 12.5 MG TAB PO SCH (08:05)
[2025-03-15] MEDS: APIXABAN 5 MG TABLET PO SCH (08:05)
[2025-03-15] MEDS: ISOSORBIDE MONO EXTENDED REL 60 MG TABCR PO SCH (08:07)
[2025-03-15] MEDS: ATORVASTATIN 40 MG TAB PO SCH (08:07)
[2025-03-15] MEDS: VALSARTAN 80 MG TAB PO SCH (08:07)
--- NOTE | 2025-03-15 08:38 | Cardiology Consultation ---
Date of Consultation March 15, 2025 Assessment & Plan (1) Chest pain: (2) SOB (shortness of breath): (3) Aortic stenosis: (4) (HFpEF) heart failure with preserved ejection fraction: (5) Coronary artery disease: (6) HTN (hypertension): (7) Dyslipidemia: Plan 85 year old female who presented to [facility] ED on 03/14/25 for evaluation of dyspnea on exertion and chest pain for past three weeks. Symptoms started after she was admitted to [facility] ED (11/25/24) for ongoing generalized weakness and recurrent falls. 1. Chest pain 2. Dyspnea on exertion 3. Moderate aortic stenosis 4. Hypertensive heart disease with dynamic LVOT obstruction, mild NOHEMI and mild mitral regurgitation 5. Sinus bradycardia -Worsening dyspnea on exertion, exertional chest discomfort, and lightheadedness possibly secondary to progressive aortic stenosis and LVOT obstruction -Does not appear significantly volume overloaded upon examination -Borderline low blood pressure this morning -Sinus bradycardia/rhythm with rates in 50-60s upon telemetry review -Chest CTA (03/14/25) demonstrated no consolidation or pleural effusion -ECHO pending today to reassess aortic valve gradients and LVOT obstruction -Reduced carvedilol dose from 25 mg to 12.5 mg twice daily -Continue valsartan, amlodipine, and spironolactone as per current regimen 7. Mild, non-obstructive CAD per cardiac catheterization (2011) -Exertional chest discomfort possibly secondary to progressive aortic stenosis and LVOT obstruction -Remains asymptomatic with no recurrent chest discomfort -EKG upon admission with no acute ischemic changes -High-sensitivity troponin negative 8. Acute DVT -Continue Eliquis as prescribed -Will defer to primary team for ongoing management Case discussed and coordinated with Dr. Recinos. Please see Dr. Recinos notes for further recommendations. I spent a total of 45 minutes coordinating, documenting, and providing care for this patient excluding time spent in the performance of separately billed services or time spent by another provider/QHP. [facility] Department of Cardiology Supervising Physician Co-Signing Physician Notes I spent a total of 50 minutes on the date of service in preparation, delivery, and documentation of the care provided to this patient, excluding any time spent in the performance of separately billed services. I have personally performed a history and physical examination on the patient. I have reviewed the advance practitioner's documentation, and I agree with, and take responsibility for the plan of care. History of Present Illness Reason for Consultation: Chest pain Requesting Physician: Camryn Blas MD Attending Physician: Mark Diaz DO History of Present Illness 85 year old female who presented to [facility] ED on 03/14/25 for evaluation of dyspnea on exertion and chest pain for past three weeks. Seen by cardiology today for evaluation of chest pain. She felt like symptoms started after she was admitted to [facility] ED (11/25/24) for ongoing generalized weakness and recurrent falls. Has had worsening lightheadedness and weakness since ED visit. Her blood pressure has been low at home with systolics in 100-110s. Has also noticed low heart rates in 40s. Denies syncope. Recently developed difficulty breathing with minimal activity such as pumping gas a few weeks ago. Has had worsening dyspnea on exertion and exertional chest discomfort for the past three weeks. Feels intermittent, sharp mid-upper chest discomfort that radiates to her jaw at rest. Denies associated nausea, diaphoresis, or tachy palpitations. She has felt like she is more bloated and legs feel heavy. Denies orthopnea, PND, worsening edema, or recent weight gain. She notes significant family history of valvular disease. She had recurrent strep throat infections during childhood and was told that she had rheumatic fever at age 12. Denies tobacco, alcohol, or illicit drug use. Past Medical History: 1. Moderate aortic stenosis 2. 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 Mild non-obstructive CAD per cardiac catheterization (2011) 4. Dyslipidemia 5. Mild carotid artery stenosis 6. Sinus bradycardia Allergies Allergy/AdvReac Type Severity Reaction Status Date / Time lidocaine Allergy Unknown Unknown - Unverified 03/14/25 17:54 On file w/ [facility] Home Medications Medication Instructions Recorded Confirmed Type amlodipine 10 mg tablet 10 mg PO QAM 03/14/25 03/14/25 History atorvastatin 40 mg tablet 40 mg PO QAM 03/14/25 03/14/25 History carvedilol 25 mg tablet 25 mg PO BIDWMEAL 03/14/25 03/14/25 History duloxetine 30 mg capsule,delayed 30 mg PO DAILY 03/14/25 03/14/25 History release isosorbide mononitrate 120 mg 120 mg PO QAM 03/14/25 03/14/25 History tablet,extended release 24 hr omeprazole 40 mg capsule,delayed 40 mg PO DAILYBB 03/14/25 03/14/25 History release spironolactone 25 mg tablet 12.5 mg PO QAM 03/14/25 03/14/25 History valsartan 320 1 tab PO QAM 03/14/25 03/14/25 History mg-hydrochlorothiazide 25 mg tablet Patient History Medical History (Updated 03/15/25 @ 12:00 by Mark Diaz DO) Anemia SVT (supraventricular tachycardia) Osteoporosis CKD (chronic kidney disease) stage 3, GFR 30-59 ml/min GERD (gastroesophageal reflux disease) Asymptomatic bradycardia HTN (hypertension) Aortic stenosis Surgical History (Updated 03/14/25 @ 19:00 by Camryn Blas MD) Hx of cholecystectomy History of appendectomy Family History (Updated 03/14/25 @ 19:01 by Camryn Blas MD) Other COPD (chronic obstructive pulmonary disease) Coronary heart disease Social History Smoking Status: Former smoker Second Hand Exposure: No; Do You Dip or Chew Tobacco: No; Hx Alcohol Use: Yes Alcohol type: wine Hx Substance Use: No Preferred Language: Thai Communication Ability: Effective 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 All others negative other than those noted in the HPI. CONSTITUTIONAL: No change in weight, No weakness, No fatigue, No fevers, No sweats or chills. HEENT: No visual changes, No epistaxis, No bleeding gums, No dysphagia, PULMONARY: +shortness of breath. No cough, sputum, or hemoptysis, No wheezing, and No recent change in breathing. CARDIOVASCULAR: +chest pain, dyspnea on exertion, edema. No palpitations, No syncope, No claudication, No calf pain. GASTROINTESTINAL: No change in appetite, No abdominal pain, No change in bowel habits, No significant heartburn, No nausea, No vomiting, No diarrhea, No constipation, No blood in stools or black tarry stools, No dysphagia. HEMATOLOGIC: No abnormal bleeding and No bruising. NEUROLOGICAL: +lightheadedness, falls. No dizziness, Normal balance, No headaches, and No weakness. PSYCH: No sleep disturbances, No mood changes. Physical Exam Physical Exam: Vital signs within normal limits as above. General: Well developed and nourished. No acute distress. A+Ox3. HEENT: Normocephalic. Atraumatic. EOMI. Conjunctiva and sclera clear. NECK: Trachea midline. No thyromegaly. No carotid bruits. No JVD. Carotid upstrokes are brisk. Heart: RRR. S2 noted. Grade II/ systolic murmur. No rubs or gallops. PMI non displaced. Lungs: No acute respiratory distress. Clear to auscultation. No wheezes.No rhonchi. No rales. Abdomen: Normal bowel sounds. Soft. Nontender. No abdominal bruits. Extremities: Normal capillary refill. Trace BLE edema. No clubbing or cyanosis. Pulses: radial=2/4, dorsal pedis=2/4. Skin: Warm and dry. NEURO: No focal deficits. PSYCH: Appropriate affect and insight. Results & Data Vital Signs (Past 12 Hours) Vital Signs Temp Pulse Pulse Resp BP BP Pulse Ox 03/15/25 07:36 36.3 C L 61 18 145/70 H 97 03/15/25 03:29 36.4 C L 61 18 139/54 L 95 03/14/25 23:30 03/14/25 23:30 36.3 C L 56 L 18 124/47 L 97 03/14/25 23:19 55 L 03/14/25 23:11 36.3 C L 56 L 21 124/47 L 97 03/14/25 22:33 55 L 03/14/25 22:00 55 L 20 127/59 L 03/14/25 21:03 61 20 116/48 L 96 O2 Del Method 03/15/25 07:36 Room Air 03/15/25 03:29 Room Air 03/14/25 23:30 Room Air 03/14/25 23:30 Room Air 03/14/25 23:19 03/14/25 23:11 Room Air 03/14/25 22:33 03/14/25 22:00 03/14/25 21:03 Room Air Laboratory Results Cardiac Enzymes 03/14/25 03/14/25 Range/Units 14:30 17:39 AST 13 (13-39) U/L Troponin I High Sens 3.5 3.7 (0-14) pg/ml B-Natriuretic Peptide 72 (0-100) pg/ml Coagulation 03/14/25 03/14/25 Range/Units 14:30 17:39 PT 10.2 (9.0-12.0) Seconds APTT 24 (21-31) Seconds B-Natriuretic Peptide 72 (0-100) pg/ml CBC 03/14/25 03/15/25 Range/Units 14:30 05:38 WBC 9.17 6.21 (4.8-10.8) K/ul RBC 3.42 L 3.19 L (4.20-5.40) M/uL Hgb 10.8 L 10.0 L (12.0-16.0) g/dl Hct 31.1 L 29.1 L (37.0-47.0) % Plt Count 304 279 (130-400) K/uL Neut # (Auto) 6.95 H (1.40-6.50) K/uL Lymph # (Auto) 0.76 L (1.20-3.40) K/uL [place] # (Auto) 1.06 H (0.11-0.59) K/uL Eos # (Auto) 0.32 (0.00-0.50) K/uL Baso # (Auto) 0.04 (0.00-0.20) K/uL Comprehensive Metabolic Panel 03/14/25 03/14/25 Range/Units 14:30 17:39 Sodium 125 L 126 L (136-145) mmol/L Potassium 5.0 4.5 (3.5-5.1) mmol/L Chloride 90 L 92 L (98-107) mmol/L Carbon Dioxide 28 27 (21-32) mmol/L BUN 17 17 (6-23) mg/dl Creatinine 1.05 0.93 (0.6-1.2) mg/dl Glucose 123 H 117 H (70-99(Fasting)) mg/dl Calcium 9.9 9.6 (8.6-10.3) mg/dl AST 13 (13-39) U/L ALT 11 (7-52) U/L Alkaline Phosphatase 49 (34-104) U/L Total Protein 6.6 (6.0-8.3) gm/dl Albumin 4.1 (3.4-5.0) gm/dl Intake and Output 03/14/25 03/15/25 03/15/25 22:59 06:59 14:59 Intake Total 250 / 250 309.2 / 309.2 Output Total 1100 / 1100 Balance -850 / -850 309.2 / 309.2 Intake: IV 250 / 250 309.2 / 309.2 Heparin 47314 Unit/500 ml D5w 309.2 / 309.2 25,000 units In 500 ml @ 1,200 UNITS/HR 24 mls/hr IV .[id number] ELENA Rx#:[id number] Sodium Chloride 0.9% 250 ml @ 250 / 250 999 mls/hr IV .Q16M ONE Rx#: [id number] Output: Urine 1100 / 1100 Other: # Unmeasured Voids 1 Weight 77.8 kg Weight Measurement Method Built in [facility] Diagnostic Findings EKG done 03/14/25 personally reviewed and demonstrated sinus bradycardia with 1st degree AV block with rate 49 beats per minute and QTc 497 ms. ECHO 03/26/24 The left ventricular cavity size is normal. The LV wall thickness is moderately increased (concentric). The basal septum is thickened and angulated consistent with sigmoid septum. The left ventricular wall motion is normal. The qualitative LV ejection fraction is >70% (hyperdynamic). There is resting flow acceleration above left ventricular outflow tract, with inducible gradient by Valsalva maneuver reflecting obstruction at mid ventricular level. There is chordal systolic anterior motion The inducible peak instantaneous left ventricular outflow tract gradient is 125 mm Hg. The aortic valve is moderately calcified. The aortic valve opening is moderately reduced. Image and Doppler assessment of aortic stenosis severity is discordant: Mild to moderate aortic stenosis is present. Mild secondary mitral regurgitation is present. Moderate tricuspid regurgitation is present. There is no evidence of pulmonary hypertension. Compared to prior study of August 03, 2023, there is no significant change. PG Care Time/CCT Total # of Minutes Spent Total Time Spent with Patient: Total time spent is greater than 50% in coordination of care (as documented) at patient's floor/unit and/or counseling patient: [place] [address] IN/OBS CONSULT LVL 4,60M Patient Type New Diagnoses Chest pain R07.9 Chest pain type: unspecified SOB (shortness of breath) R06.02 Aortic stenosis I35.0 (HFpEF) heart failure with preserved ejection fraction I50.30 Coronary artery disease I25.10 HTN (hypertension) I10 Dyslipidemia E78.5 Time Spent (min) 60 (1) Chest pain Chest pain type: unspecified Qualified Code(s): R07.9 - Chest pain, unspecified
[2025-03-15 10:15] LABS: Anion Gap 9.0 (3-11); Blood Urea Nitrogen 17.0 mg/dl (6-23); Calcium 9.4 mg/dl (8.6-10.3); Carbon Dioxide 27.0 mmol/L (21-32); Chloride 93.0 mmol/L (98-107); Creatinine Clr Calc Pharmacy 41.7 ml/min; Glucose 106.0 mg/dl (70-99(Fasting)); Potassium 4.5 mmol/L (3.5-5.1); Sodium 129.0 mmol/L (136-145)
--- NOTE | 2025-03-15 11:10 | Nephrology Consultation ---
Date of Consultation March 15, 2025 Assessment & Plan (1) Acute hyponatremia: 85 year old female with PMHx significant for CAD, chronic HFpEF, aortic valve stenosis, SVT, CKD stage III, chronic back pain, recent right meniscus tear, GERD, and anemia who presented to [facility] ED on 03/14/25 for evaluation of dyspnea on exertion and chest pain for past three weeks.Labs were significant for sodium of 125, she was on Valsartan + HCTZ AND spirolactone. Valsartan has been continued and HCTZ has been stopped.She has baseline ckd 3a. Acute hyponatremia multifactorial, 2/2 HCTZ and spirolactone, duloxetine Cannot comment about the Chronicity as no previous labs in system. Continue to hold HCTZ and spirolactone and duloxetine trend bmp q12, target 134 until 5.00 pm today FR 2L urine Osmol/ fractional excretion of uric acid If her oxygen demand increases she can ge started on torsemide 20 mg daily. (2) (HFpEF) heart failure with preserved ejection fraction: Diuretic as above (3) Chest pain: History of Present Illness Reason for Consultation: Hyponatremia Attending Physician: Mark Diaz DO History of Present Illness 85 year old woman with past medical history remarkable for HFpEF, CKDIII, CAD, aortic valve stenosis, SVT, chronic back pain,HFeEF., GERD, who was admitted with chest pain. ER labs were significant for hyponatremia(125). she was on Valsartan + hctz 320+25, Spirolactone 12.5 mg daily.She admitted to drinking " excessive water" She was also noted to have DVT in LLE,CT PE ruled out Pulmonary embolism. Chest x clovis showed no , acute cardiopulmonry findings.BP is acceptable her urine output has been 1110 mls since admission Allergies Allergy/AdvReac Type Severity Reaction Status Date / Time lidocaine Allergy Unknown Unknown - Unverified 03/14/25 17:54 On file w/ [facility] Home Medications Medication Instructions Recorded Confirmed Type amlodipine 10 mg tablet 10 mg PO QAM 03/14/25 03/14/25 History atorvastatin 40 mg tablet 40 mg PO QAM 03/14/25 03/14/25 History carvedilol 25 mg tablet 25 mg PO BIDWMEAL 03/14/25 03/14/25 History duloxetine 30 mg capsule,delayed 30 mg PO DAILY 03/14/25 03/14/25 History release isosorbide mononitrate 120 mg 120 mg PO QAM 03/14/25 03/14/25 History tablet,extended release 24 hr omeprazole 40 mg capsule,delayed 40 mg PO DAILYBB 03/14/25 03/14/25 History release spironolactone 25 mg tablet 12.5 mg PO QAM 03/14/25 03/14/25 History valsartan 320 1 tab PO QAM 03/14/25 03/14/25 History mg-hydrochlorothiazide 25 mg tablet Patient History Medical History (Updated 03/15/25 @ 12:00 by Mark Diaz DO) Anemia SVT (supraventricular tachycardia) Osteoporosis CKD (chronic kidney disease) stage 3, GFR 30-59 ml/min GERD (gastroesophageal reflux disease) Asymptomatic bradycardia HTN (hypertension) Aortic stenosis Surgical History (Updated 03/14/25 @ 19:00 by Camryn Blas MD) Hx of cholecystectomy History of appendectomy Family History (Updated 03/14/25 @ 19:01 by Camryn Blas MD) Other COPD (chronic obstructive pulmonary disease) Coronary heart disease Social History Smoking Status: Former smoker Second Hand Exposure: No; Do You Dip or Chew Tobacco: No; Hx Alcohol Use: Yes Alcohol type: wine Hx Substance Use: No Preferred Language: Indonesian Communication Ability: Effective Master Control Engineer Required: No Beliefs That Will Affect Care: None Current Living Situation: Alone Current Living Situation Comment: Lives alone beside daughter's house Feels Safe at Home: Yes Safety Concerns: Feels Safe At This Time Assistive Devices: Cane and Walker Review of Systems 2 Review of Systems: All systems reviewed & are unremarkable except as noted in HPI & below Physical Exam 2 Physical Exam: Constitutional: Alert, nontoxic HEENT: Mucous membranes moist. Lungs: Clear to auscultation, decreased, no wheezes rales or rhonchi CV: S1-S2, regular, systolic murmur Abdomen: Soft, nontender, nondistended Extremities: 1+ pitting edema Neuro: No focal deficits Psych: Cooperative, normal mood Results & Data Vital Signs (Past 12 Hours) Vital Signs Temp Pulse Pulse Resp BP Pulse Ox O2 Del Method 03/15/25 07:36 36.3 C L 61 18 145/70 H 97 Room Air 03/15/25 03:29 36.4 C L 61 18 139/54 L 95 Room Air 03/14/25 23:30 Room Air 03/14/25 23:30 36.3 C L 56 L 18 124/47 L 97 Room Air 03/14/25 23:19 55 L 03/14/25 23:11 36.3 C L 56 L 21 124/47 L 97 Room Air Laboratory Results 03/15/25 05:38 03/15/25 05:38 (3) Chest pain Chest pain type: unspecified Qualified Code(s): R07.9 - Chest pain, unspecified
--- NOTE | 2025-03-15 11:55 | Hospitalist Progress Note ---
Date of Service March 15, 2025 Assessment & Plan (1) Left ventricular outflow obstruction: (2) Hyponatremia with decreased serum osmolality: (3) Aortic stenosis: (4) Acute deep vein thrombosis of left lower extremity: (5) Symptomatic bradycardia: (6) (HFpEF) heart failure with preserved ejection fraction: (7) Coronary artery disease: (8) CKD (chronic kidney disease) stage 3, GFR 30-59 ml/min: Plan Patient 85-year-old female presents with a constellation of symptoms. High suspicion symptoms related to valvular disease and left ventricular outflow obstruction exacerbated by bradycardia that may be medication induced and some volume overload from patient's increased water intake and hyponatremia. Hyponatremia due to excessive water intake, hydrochlorothiazide. Continue fluid restriction, discontinue hydrochlorothiazide Await echocardiogram for updated function of the heart, cardiology consult pending I discontinue heparin, transition to Eliquis for left lower extremity DVT. Suspect this is provoked. Patient states that she really has not been ambulating all that much due to symptoms of shortness of breath, lightheadedness and dizziness and a bad right knee. Reviewed nephrology consultation Decreased Coreg in the setting of bradycardia that seems to potentially be symptomatic Therapies Monitor electrolytes and renal function Admission and Anticipated Discharge Date Admission Date: March 14, 2025 Subjective Patient reports a little bit of shortness of breath with activity. This has been progressing over the last few weeks. She also states that she has been drinking a lot of water because she was having lightheadedness and dizziness and people thought that she was dehydrated. She reports she has not seen her cardio logist for quite some time but does know how she has some significant valvular issues. Physical Exam Physical Exam: Constitutional: Alert, nontoxic HEENT: Mucous membranes moist. Lungs: Clear to auscultation, decreased, no wheezes rales or rhonchi CV: S1-S2, regular, systolic murmur Abdomen: Soft, nontender, nondistended Extremities: 1+ pitting edema Neuro: No focal deficits Psych: Cooperative, normal mood Results & Data Results & Data Vital Signs (Past 12 Hours) Vital Signs Temp Pulse Resp BP Pulse Ox O2 Del Method 03/15/25 11:04 36.3 C L 51 L 18 104/51 L 98 Room Air 03/15/25 07:36 36.3 C L 61 18 145/70 H 97 Room Air 03/15/25 03:29 36.4 C L 61 18 139/54 L 95 Room Air Diagnostic Findings Reviewed imaging, laboratory and diagnostic studies. Pertinent findings as below. CTA of the chest negative for PE no significant pulmonary edema or effusions CBC stable Sodium 129 Creatinine 1.02 Troponins negative x 2 sets TSH 1.78 Echocardiogram pending
[2025-03-15 15:38] LABS: Uric Acid 6.7 mg/dl (2.6-7.2)
[2025-03-16 06:56] LABS: Anion Gap 6.0 (3-11); Blood Urea Nitrogen 22.0 mg/dl (6-23); Calcium 9.2 mg/dl (8.6-10.3); Carbon Dioxide 29.0 mmol/L (21-32); Chloride 96.0 mmol/L (98-107); Creatinine Clr Calc Pharmacy 38.8 ml/min; Glucose 99.0 mg/dl (70-99(Fasting)); Magnesium 2.0 mg/dl (1.7-2.4); Potassium 4.4 mmol/L (3.5-5.1); Sodium 131.0 mmol/L (136-145)
--- NOTE | 2025-03-16 08:56 | Cardiology Progress Note ---
Date of Service March 16, 2025 Assessment & Plan (1) Chest pain: (2) SOB (shortness of breath): (3) Aortic stenosis: (4) (HFpEF) heart failure with preserved ejection fraction: (5) Coronary artery disease: (6) HTN (hypertension): (7) Dyslipidemia: Plan 85 year old female who presented to [facility] ED on 03/14/25 for evaluation of dyspnea on exertion and chest pain for past three weeks. 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 Last ECHO (03/26/24) outpatient demonstrated moderate left ventricular hypertrophy, dynamic LVOT with gradient 125 mmHg, moderately calcified aortic valve with mild-moderate aortic stenosis, mild secondary mitral regurgitation, and moderate tricuspid regurgitation. Symptoms started after she was admitted to [facility] ED (11/25/24) for ongoing generalized wea kness and recurrent falls. Blood pressure has been low at home with systolics in 100-110s. Has also noticed low heart rates in 40s. Noted significant family history of valvular disease with recurrent strep throat infections during childhood and possible history of rheumatic fever at age 12. ECHO yesterday (03/15) revealed preserved LVEF 55-60% and moderate aortic stenosis. It was noted that valve appeared significantly calcified and may be discrepancy between 2D and Doppler data. Carvedilol dose reduced from 25 mg to 12.5 mg twice daily given sinus bradycardia. 1. Chest pain 2. Dyspnea on exertion 3. Moderate aortic stenosis 4. Hypertensive heart disease with dynamic LVOT obstruction, mild NOHEMI and mild mitral regurgitation -Worsening dyspnea on exertion, exertional chest discomfort, and lightheadedness possibly secondary to progressive aortic stenosis, LVOT obstruction, and sinus bradycardia -Does not appear significantly volume overloaded upon examination and weight remains stable -ECHO yesterday (03/15) revealed preserved LVEF 55-60% and moderate aortic stenosis (V2 max 286.9 cm/sec; mean PG 21.7 mmHg; ROSA 1.4 cm2) -Continue valsartan, amlodipine, and spironolactone as per current regimen -Would consider transesophageal echocardiogram to evaluate severity of aortic stenosis if she remains symptomatic 5. Sinus bradycardia -Near syncopal event this AM with symptomatic bradycardia and rates in 30-40s -Hold AV madeleine blockers given symptomatic bradycardia -Maintain external pacer pads in place -Plan for Zio monitor outpatient to rule out significant pauses or high-grade AV block -Continue to monitor on telemetry 7. Mild, non-obstructive CAD per cardiac catheterization (2011) -Exertional chest discomfort possibly secondary to progressive aortic stenosis and LVOT obstruction -Remains asymptomatic with no recurrent chest discomfort -EKG upon admission with no acute ischemic changes -High-sensitivity troponin negative 8. Acute DVT -Continue Eliquis as prescribed -Will defer to primary team for ongoing management Case discussed and coordinated with Dr. Recinos. Please see Dr. Recinos notes for further recommendations. I spent a total of 30 minutes coordinating, documenting, and providing care for this patient excluding time spent in the performance of separately billed services or time spent by another provider/QHP. MEDHAT Burnett Department of Cardiology Admission and Anticipated Discharge Date Admission Date: March 14, 2025 Supervising Physician Co-Signing Physician Notes I spent a total of minutes on the date of service in preparation, delivery, and documentation of the care provided to this patient, excluding any time spent in the performance of separately billed services. I have personally performed a history and physical examination on the patient. I have reviewed the advance practitioner's documentation, and I agree with, and take responsibility for the plan of care. Patient has not had any recurrence of chest discomfort however her heart rate did drop to the 40s today. No high degree AV block or pauses noted. Yesterday her carvedilol was reduced to 12 and milligrams p.o. twice daily due to bradycardia in the 50s. We will stop carvedilol. Monitor on telemetry. Given her acute DVT we will hold off on ischemic evaluation. Which may be done as an outpatient as patient currently not having any chest pain or shortness of breath. She has been feeling more fatigued in the last couple of months and may possibly be related to bradycardia from carvedilol. Will see how patient responds with holding carvedilol. Her echocardiogram shows preserved left ventricular ejection fraction with moderate aortic stenosis. Patient continues to be asymptomatic despite improvement in her heart rate and blood pressure may consider a CARLA in the future for evaluation of her aortic stenosis. Subjective Seen by cardiology today for examination and follow-up. Sitting up in the chair and tachypneic upon exam this morning. Near syncopal event this morning with bradycardia and rates in 30-40s. [place] flushed with "prickling" sensation across head and short of breath after event. Denies chest pressure, pain, tachy palpitations, lightheadedness, dizziness, syncope, orthopnea, PND, or worsening edema. Chart, medications, and telemetry personally reviewed. Review of Systems Review of Systems: See HPI for pertinent positives. All others negative other than those noted in the HPI. CONSTITUTIONAL: No change in weight, No weakness, No fatigue, No fevers, No sweats or chills. HEENT: No visual changes, No epistaxis, No bleeding gums, No dysphagia, PULMONARY: +shortness of breath. No cough, sputum, or hemoptysis, No wheezing, and No recent change in breathing. CARDIOVASCULAR: No palpitations, No chest pain, No dyspnea on exertion, No edema, No syncope, No claudication, No calf pain. GASTROINTESTINAL: No change in appetite, No abdominal pain, No change in bowel habits, No significant heartburn, No nausea, No vomiting, No diarrhea, No constipation, No blood in stools or black tarry stools, No dysphagia. HEMATOLOGIC: No abnormal bleeding and No bruising. NEUROLOGICAL: No dizziness, Normal balance, No headaches, and No weakness. PSYCH: No sleep disturbances, No mood changes. Physical Exam Physical Exam: Vital signs within normal limits as above. General: Well developed and nourished. No acute distress. A+Ox3. HEENT: Normocephalic. Atraumatic. EOMI. Conjunctiva and sclera clear. NECK: Trachea midline. No thyromegaly. No carotid bruits. No JVD. Carotid upstrokes are brisk. Heart: RRR. Grade III/ systolic murmur. No rubs or gallops. PMI non displaced. Lungs: No acute respiratory distress. Clear to auscultation. No wheezes.No rhonchi. No rales. Abdomen: Normal bowel sounds. Soft. Nontender. No abdominal bruits. Extremities: Normal capillary refill. No edema. No clubbing or cyanosis. Pulses: radial=2/4, dorsal pedis=2/4. Skin: Warm and dry. NEURO: No focal deficits. PSYCH: Appropriate affect and insight. Results & Data Vital Signs (Past 12 Hours) Vital Signs Temp Pulse Pulse Resp BP Pulse Ox O2 Del Method 03/16/25 07:23 36.3 C L 60 18 137/63 96 Room Air 03/16/25 03:08 36.3 C L 62 18 142/59 H 94 Room Air 03/15/25 23:17 36.8 C 61 16 130/57 L 95 Room Air 03/15/25 21:52 61 Laboratory Results Comprehensive Metabolic Panel 03/15/25 03/16/25 Range/Units 05:38 05:48 Sodium 129 L 131 L (136-145) mmol/L Potassium 4.5 4.4 (3.5-5.1) mmol/L Chloride 93 L 96 L (98-107) mmol/L Carbon Dioxide 27 29 (21-32) mmol/L BUN 17 22 (6-23) mg/dl Creatinine 1.02 1.09 (0.6-1.2) mg/dl Glucose 106 H 99 (70-99(Fasting)) mg/dl Calcium 9.4 9.2 (8.6-10.3) mg/dl Intake and Output 03/15/25 03/16/25 03/16/25 22:59 06:59 14:59 Intake Total 120 / 669.2 Balance 120 / 669.2 Intake: Oral 120 / 360 Other: # Unmeasured Voids 1 Weight 77 kg Weight Measurement Method Built in [facility] Diagnostic Findings ECHO 03/15/25 LVEF = 55-60% The right ventricular cavity size is normal Ther right ventricular systolic function is normal Moderate valvular aortic stenosis PG Care Time/CCT Total # of Minutes Spent Total Time Spent with Patient: Total time spent is greater than 50% in coordination of care (as documented) at patient's floor/unit and/or counseling patient: Coding [place] [address] SUB INP/OBS CARE 3/50MIN Patient Type Established Diagnoses Chest pain R07.9 Chest pain type: unspecified SOB (shortness of breath) R06.02 Aortic stenosis I35.0 (HFpEF) heart failure with preserved ejection fraction I50.30 Coronary artery disease I25.10 HTN (hypertension) I10 Dyslipidemia E78.5 Time Spent (min) 50 (1) Chest pain Chest pain type: unspecified Qualified Code(s): R07.9 - Chest pain, unspecified
--- NOTE | 2025-03-16 11:29 | Hospitalist Progress Note ---
Date of Service March 16, 2025 Assessment & Plan (1) Left ventricular outflow obstruction: (2) Hyponatremia with decreased serum osmolality: (3) Aortic stenosis: (4) Acute deep vein thrombosis of left lower extremity: (5) Symptomatic bradycardia: (6) (HFpEF) heart failure with preserved ejection fraction: (7) Coronary artery disease: (8) CKD (chronic kidney disease) stage 3, GFR 30-59 ml/min: Plan Patient 85-year-old female with chest pain and symptoms most likely related to her aortic stenosis and bradycardia. Earlier this morning patient seemed to be significantly improved and heart rates improved, however acute event later on this morning patient had heart rate dropped into the 30s and 40s and was quite symptomatic. Patient remains critically ill, requiring hospital level care, monitoring and specialty consultation. Communication with cardiology, aware of bradycardia and was evaluated. Will completely discontinue Coreg at this time. External pacer pads in place Continue to monitor in the hospital Continue to monitor for volume overload Monitor off Coreg Continue anticoagulation for lower extremity DVT Patient's hyponatremia steadily improving with discontinuation of hydrochlorothiazide and fluid restriction Continue to monitor electrolytes and renal function Admission and Anticipated Discharge Date Admission Date: March 14, 2025 Subjective No acute events overnight, heart rate seems to be improved at the time of my evaluation. Patient states she is definitely starting to feel better and have more energy. Physical Exam Physical Exam: Constitutional: Alert, nontoxic HEENT: Mucous membranes moist. Lungs: Clear to auscultation, decreased, no wheezes rales or rhonchi CV: S1-S2, regular, systolic murmur, intermittently bradycardic Abdomen: Soft, nontender, nondistended Extremities: No significant edema Neuro: No focal deficits Psych: Cooperative, normal mood Results & Data Results & Data Vital Signs (Past 12 Hours) Vital Signs Temp Pulse Resp BP Pulse Ox O2 Del Method 03/16/25 11:07 36.2 C L 43 L 18 106/54 L 97 Room Air 03/16/25 08:00 Room Air 03/16/25 07:23 36.3 C L 60 18 137/63 96 Room Air 03/16/25 03:08 36.3 C L 62 18 142/59 H 94 Room Air Diagnostic Findings Reviewed imaging, laboratory and diagnostic studies. Pertinent findings as below. Sodium 131 Potassium 4.4 Chloride 96 Creatinine 1.09 Reviewed echocardiogram, ejection fraction 55 to 60%, at least moderate aortic stenosis
--- NOTE | 2025-03-16 12:35 | Nephrology Progress Note ---
Date of Service March 16, 2025 Assessment & Plan (1) Acute hyponatremia: Plan: 85 year old female with PMHx significant for CAD, chronic HFpEF, aortic valve stenosis, SVT, CKD stage III, chronic back pain, recent right meniscus tear, GERD, and anemia who presented to [facility] ED on 03/14/25 for evaluation of dyspnea on exertion and chest pain for past three weeks.Labs were significant for sodium of 125, she was on Valsartan + HCTZ AND spirolactone. Valsartan has been continued and HCTZ has been stopped.She has baseline ckd 3a. Acute hyponatremia multifactorial, 2/2 HCTZ and spirolactone, duloxetine Cannot comment about the Chronicity as no previous labs in system. - 131 in am, on target Continue to hold HCTZ and spirolactone and duloxetine trend bmp q24, FR 1.5L If her oxygen demand increases she can ge started on torsemide 20 mg daily. (2) (HFpEF) heart failure with preserved ejection fraction: Plan: Diuretic as above (3) Chest pain: Admission and Anticipated Discharge Date Admission Date: March 14, 2025 Subjective No acute events overnight. Comfortable Review of Systems 2 Review of Systems: All systems reviewed & are unremarkable except as noted in HPI & below Physical Exam 2 Physical Exam: Constitutional: Alert, nontoxic HEENT: Mucous membranes moist. Lungs: Clear to auscultation, decreased, no wheezes rales or rhonchi CV: S1-S2, regular, systolic murmur Abdomen: Soft, nontender, nondistended Extremities: 1+ pitting edema Neuro: No focal deficits Psych: Cooperative, normal mood Results & Data Vital Signs (Past 12 Hours) Vital Signs Temp Pulse Resp BP Pulse Ox O2 Del Method 03/16/25 11:07 36.2 C L 43 L 18 106/54 L 97 Room Air 03/16/25 08:00 Room Air 03/16/25 07:23 36.3 C L 60 18 137/63 96 Room Air 03/16/25 03:08 36.3 C L 62 18 142/59 H 94 Room Air Laboratory Results 03/15/25 05:38 03/16/25 05:48 (3) Chest pain Chest pain type: unspecified Qualified Code(s): R07.9 - Chest pain, unspecified
[2025-03-17 05:45] LABS: Hematocrit (blood only) 30.1 % (37.0-47.0); Hemoglobin 10.3 g/dl (12.0-16.0); Mean Corpuscular Hemoglobin 31.6 pg (25.0-34.0); Mean Corpuscular Volume 92.3 fL (80.0-100.0); Platelet Count 270 K/uL (130-400); RDW Standard Deviation 43.7 fL (36.4-46.3); Red Blood Count 3.26 M/uL (4.20-5.40); White Blood Count 7.41 K/ul (4.8-10.8)
[2025-03-17 05:59] LABS: Anion Gap 7.0 (3-11); Blood Urea Nitrogen 27.0 mg/dl (6-23); Calcium 9.1 mg/dl (8.6-10.3); Carbon Dioxide 28.0 mmol/L (21-32); Chloride 98.0 mmol/L (98-107); Creatinine Clr Calc Pharmacy 31.7 ml/min; Glucose 102.0 mg/dl (70-99(Fasting)); Magnesium 2.0 mg/dl (1.7-2.4); Potassium 4.7 mmol/L (3.5-5.1); Sodium 133.0 mmol/L (136-145)
--- NOTE | 2025-03-17 07:28 | Nephrology Progress Note ---
Date of Service March 17, 2025 Assessment & Plan (1) Acute hyponatremia: Plan: 85 year old female with PMH significant for CAD, chronic HFpEF, aortic valve stenosis, LVOT obstruction hx, SVT, CKD stage III, chronic back pain, recent right meniscus tear, GERD, and anemia who presented to [facility] ED on 03/14/25 for evaluation of dyspnea on exertion and chest pain for past three weeks. Labs were significant for sodium of 125, she was on Valsartan + HCTZ AND spirolactone. Valsartan has been continued and HCTZ has been stopped.She has baseline ckd 3a, creatinine 1.2-1.3 baseline as OP, though better than baseline here. chronic hyponatremia multifactorial, 2/2 HCTZ and spironolactone, duloxetine; presume chronic given hx, though no previous labs in system. - 133 in am, on target and K acceptable Continue to hold HCTZ and spironolactone and duloxetine >> BP and vol status ok so far trend bmp q24h >>creatinine uptick today noted > suspect relates to bradycardia FR 1.5L If her oxygen demand increases she can be started on low dose torsemide 5 mg daily or more in c/w cardiology b/c of LVOTO. (2) (HFpEF) heart failure with preserved ejection fraction: Plan: PRN Diuretic as above willis w/ consideration for LVOT obstruction issues rhythm issues per cardiology Admission and Anticipated Discharge Date Admission Date: March 14, 2025 Subjective no overnight events; feels well, no sob, no edema. HR in 50s this am and pacer pads remain in place; dropped to 30- 40s w/ sx yesterday including near syncope; BB held; awaiting further cardiology eval Review of Systems 2 Review of Systems: All systems reviewed & are unremarkable except as noted in Subjective Physical Exam 2 Constitutional: well developed and well nourished Eyes: EOM intact bilaterally ENMT: Mouth: + dry oral mucous membranes Respiratory: normal respiratory effort Auscultation: + diminished lung sounds Cardiovascular: Rate/Rhythm: + bradycardic and + irregularly irregular H eart Sounds: + murmur Extremities: no edema Gastrointestinal (Abdomen): Inspection/Auscultation: normal bowel sounds P ercussion/Palpation: abdomen soft; abdomen nontender Musculoskeletal: Extremities: strength 5/5 throughout Skin: no rashes, warm and dry Neurologic: rock, fluent speech, no tremor Results & Data Vital Signs (Past 12 Hours) Vital Signs Temp Pulse Pulse Resp BP Pulse Ox O2 Del Method 03/17/25 03:52 36.8 C 53 L 18 147/69 H 94 Room Air 03/16/25 23:47 36.6 C 55 L 18 116/62 96 Room Air 03/16/25 21:41 54 L 03/16/25 21:41 54 L Laboratory Results 03/17/25 05:25 03/17/25 05:25
[2025-03-17] MEDS: SODIUM CHLORIDE 0.9% 250 ML IV ONE (12:18)
--- NOTE | 2025-03-17 12:35 | Hospitalist Progress Note ---
Date of Service March 17, 2025 Assessment & Plan (1) Left ventricular outflow obstruction: (2) Hyponatremia with decreased serum osmolality: (3) Aortic stenosis: (4) Acute deep vein thrombosis of left lower extremity: (5) Symptomatic bradycardia: (6) (HFpEF) heart failure with preserved ejection fraction: (7) Coronary artery disease: (8) CKD (chronic kidney disease) stage 3, GFR 30-59 ml/min: Plan Patient is 5-year-old female continuing to have symptoms related to bradycardia and hypotension. Despite holding her Coreg, patient still hypotensive here this morning. Creatinine slightly increased, suspect possibly some mild volume depletion in the setting of fluid restriction for her hyponatremia Liberalize fluid restriction Small fluid bolus for hypotension Hold angiotensin receptor regina until renal function can be reevaluated Decrease Norvasc Continue to monitor heart rates while holding Coreg Phone conversation with Dr. Christensen, cardiology, coordinated plan of care for today with medication changes Continue anticoagulation for DVT Admission and Anticipated Discharge Date Admission Date: March 14, 2025 Subjective When patient seen this morning she was feeling significantly improved. However, little early this afternoon notified by nursing that patient became acutely lightheaded and dizzy while sitting in the chair. Noted to be hypotensive. Heart rates have been in the 50s to 60s. Physical Exam Physical Exam: Constitutional: Alert, nontoxic HEENT: Mucous membranes moist. Lungs: Clear to auscultation, decreased, no wheezes rales or rhonchi CV: S1-S2, regular, bradycardic, systolic murmur Abdomen: Soft, nontender, nondistended Extremities: No significant edema Neuro: No focal deficits Psych: Cooperative, normal mood Results & Data Results & Data Vital Signs (Past 12 Hours) Vital Signs Temp Pulse Pulse Resp BP BP Pulse Ox 03/17/25 12:00 36.2 C L 58 L 18 77/37 L 113/62 97 03/17/25 08:02 36.2 C L 59 L 18 127/66 94 03/17/25 03:52 36.8 C 53 L 18 147/69 H 94 O2 Del Method 03/17/25 12:00 Room Air 03/17/25 08:02 Room Air 03/17/25 03:52 Room Air Diagnostic Findings Reviewed imaging, laboratory and diagnostic studies. Pertinent findings as below. CBC stable Sodium 133 Potassium 4.7 Creatinine 1.35, increased
--- NOTE | 2025-03-17 15:48 | Cardiology Progress Note ---
Date of Service March 17, 2025 Assessment & Plan (1) Chest pain: (2) SOB (shortness of breath): (3) Aortic stenosis: (4) (HFpEF) heart failure with preserved ejection fraction: (5) Coronary artery disease: (6) HTN (hypertension): (7) Dyslipidemia: Plan 85 year old female who presented to [facility] ED on 03/14/25 for evaluation of dyspnea on exertion and chest pain for past three weeks. 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 Last ECHO (03/26/24) outpatient demonstrated moderate left ventricular hypertrophy, dynamic LVOT with gradient 125 mmHg, moderately calcified aortic valve with mild-moderate aortic stenosis, mild secondary mitral regurgitation, and moderate tricuspid regurgitation. Symptoms started after she was admitted to [facility] ED (11/25/24) for ongoing generalized wea kness and recurrent falls. Blood pressure has been low at home with systolics in 100-110s. Has also noticed low heart rates in 40s. Noted significant family history of valvular disease with recurrent strep throat infections during childhood and possible history of rheumatic fever at age 12. ECHO yesterday (03/15) revealed preserved LVEF 55-60% and moderate aortic stenosis. It was noted that valve appeared significantly calcified and may be discrepancy between 2D and Doppler data. Carvedilol dose reduced from 25 mg to 12.5 mg twice daily given sinus bradycardia. 1. Chest pain 2. Dyspnea on exertion 3. Moderate aortic stenosis 4. Hypertensive heart disease with dynamic LVOT obstruction, mild NOHEMI and mild mitral regurgitation -Worsening dyspnea on exertion, exertional chest discomfort, and lightheadedness possibly secondary to progressive aortic stenosis, LVOT obstruction, and sinus bradycardia -Does not appear significantly volume overloaded upon examination and weight remains stable -ECHO 03/15) revealed preserved LVEF 55-60% and moderate aortic stenosis (V2 max 286.9 cm/sec; mean PG 21.7 mmHg; ROSA 1.4 cm2) -Continue valsartan,and spironolactone. -In addition to holding coreg, reduce amlodipine to 5 mg daily given low BP. -Would consider transesophageal echocardiogram to evaluate severity of aortic stenosis if she remains symptomatic 5. Sinus bradycardia -Near syncopal 03/16 with symptomatic bradycardia and rates in 30-40s -Hold AV madeleine blockers given symptomatic bradycardia -Maintain external pacer pads in place -Plan for Zio monitor outpatient to rule out significant pauses or high-grade AV block -Continue to monitor on telemetry 7. Mild, non-obstructive CAD per cardiac catheterization (2011) -Exertional chest discomfort possibly secondary to progressive aortic stenosis and LVOT obstruction -Remains asymptomatic with no recurrent chest discomfort -EKG upon admission with no acute ischemic changes -High-sensitivity troponin negative 8. Acute DVT -Continue Eliquis as prescribed -Will defer to primary team for ongoing management I spent a total of 30 minutes coordinating, documenting, and providing care for this patient excluding time spent in the performance of separately billed services or time spent by another provider/QHP. Emelyn Christensen DO Department of Cardiology Admission and Anticipated Discharge Date Admission Date: March 14, 2025 Subjective Patient seen in cardiology follow-up. During my assessment this morning, patient without acute complaint. Telemetry revealed sinus rhythm with first- degree AV block rates in the 50s to 60s. Physical Exam Physical Exam: Temp Pulse Resp BP Pulse Ox O2 Del Method 36.3 C L 54 L 18 146/56 H 92 Room Air 03/17/25 15:04 03/17/25 15:04 03/17/25 15:04 03/17/25 15:04 03/17/25 15:04 03/17/25 15:04 General: Well developed and nourished. No acute distress. A+Ox3. HEENT: Normocephalic. Atraumatic. EOMI. Conjunctiva and sclera clear. NECK: Trachea midline. No thyromegaly. No carotid bruits. No JVD. Carotid upstr okes are brisk. Heart: RRR. Grade III/ systolic murmur. No rubs or gallops. PMI non displaced. Lungs: No acute respiratory distress. Clear to auscultation. No wheezes.No rhonchi. No rales. Abdomen: Normal bowel sounds. Soft. Nontender. No abdominal bruits. Extremities: Normal capillary refill. No edema. No clubbing or cyanosis. NEURO: No focal deficits. PSYCH: Appropriate affect and insight. PG Care Time/CCT Total # of Minutes Spent Total Time Spent with Patient: Total time spent is greater than 50% in coordination of care (as documented) at patient's floor/unit and/or counseling patient: Coding Level of Care Code 51770 SUB INP/OBS CARE 2/35MIN Diagnoses Chest pain R07.9 Chest pain type: unspecified SOB (shortness of breath) R06.02 Aortic stenosis I35.0 (HFpEF) heart failure with preserved ejection fraction I50.30 Coronary artery disease I25.10 HTN (hypertension) I10 Dyslipidemia E78.5 (1) Chest pain Chest pain type: unspecified Qualified Code(s): R07.9 - Chest pain, unspecified
[2025-03-18 06:07] LABS: Anion Gap 6.0 (3-11); Blood Urea Nitrogen 29.0 mg/dl (6-23); Calcium 8.8 mg/dl (8.6-10.3); Carbon Dioxide 25.0 mmol/L (21-32); Chloride 101.0 mmol/L (98-107); Creatinine Clr Calc Pharmacy 37.3 ml/min; Glucose 103.0 mg/dl (70-99(Fasting)); Potassium 4.3 mmol/L (3.5-5.1); Sodium 132.0 mmol/L (136-145)
--- NOTE | 2025-03-18 09:49 | Nephrology Progress Note ---
Date of Service March 18, 2025 Assessment & Plan (1) Acute hyponatremia: Plan: 85 year old female with PMH significant for CAD, chronic HFpEF, aortic valve stenosis, LVOT obstruction hx, SVT, CKD stage III, chronic back pain, recent right meniscus tear, GERD, and anemia who presented to [facility] ED on 03/14/25 for evaluation of dyspnea on exertion and chest pain for past three weeks. Labs were significant for sodium of 125, she was on Valsartan + HCTZ AND spironolactone. Valsartan has been continued and HCTZ has been stopped. She has baseline ckd 3a, creatinine 1.2-1.3 baseline as OP, though better than baseline here. chronic hyponatremia, a new issue for her spring 2024 with consistent mild hyponatremia multifactorial, 2/2 HCTZ and spironolactone, duloxetine; question worsening status with addition of medications and/or mild worsening of heart failure - 132 this am, acceptable for discharge and K acceptable Continue to hold HCTZ and duloxetine >> BP and vol status ok so far trend bmp q24h >>monitor sodium on spironolactone >>creatinine back down to baseline today > suspect worsening recently relates to bradycardia FR as below If her oxygen demand increases she can be started on low dose torsemide 5 mg daily or more in c/w cardiology b/c of LVOTO. NEPHRO D/C RECS: DX: Chronic hyponatremia, heart failure with preserved ejection fraction, left ventricular outflow tract obstruction, CKD 3A RX: -continue [id number] mg daily, spironolactone 12.5 mg daily, amlodipine 5 mg daily -consider cautious addition of loop diuretic in future; avoid increasing eliana antagonist as able and may need to stop d/t hyponatremia OTHER CARE: -continue 1.8L daily FR -continue low Na diet -continue NSAID avoidance -BMP to be ordered weekly by PCP x 3 -in the week before neph appt > neph nurse to order bmp, uacm, urine electrolytes, urine osms, serum osms, ACR -add thiazides to med intolerance list Follow up appointments: - hospital discharge appointment Dr Cruz 2-4 weeks after hosp d/c in [facility] or [place]; bring home BP cuff to appt if pt has one Care coordinated w/ Dr Diaz via TText regarding d/c meds, labs, other care; we are in agreement. (2) (HFpEF) heart failure with preserved ejection fraction: Plan: PRN Diuretic as above willis w/ consideration for LVOT obstruction issues rhythm issues per cardiology Admission and Anticipated Discharge Date Admission Date: March 14, 2025 Subjective No interval events clinically. No edema no shortness of breath no nausea vomiting. No concerns about her balance at this time; no uncontrolled pain. No malaise or further bradycardic episodes with symptoms. Cardiology recommending Zio patch and outpatient follow-up as well as stopping all AV madeleine blockers Review of Systems 2 Review of Systems: All systems reviewed & are unremarkable except as noted in Subjective Physical Exam 2 Constitutional: well developed and well nourished Sitting up in chair on room air Eyes: EOM intact bilaterally ENMT: Mouth: + dry oral mucous membranes Respiratory: normal respiratory effort Auscultation: + diminished lung sounds Cardiovascular: Rate/Rhythm: + bradycardic Heart Sounds: + murmur E xtremities: no edema Gastrointestinal (Abdomen): Inspection/Auscultation: normal bowel sounds P ercussion/Palpation: abdomen soft; abdomen nontender Musculoskeletal: Extremities: strength 5/5 throughout Skin: no rashes, warm and dry Results & Data Vital Signs (Past 12 Hours) Vital Signs Temp Pulse Pulse Resp BP BP Pulse Ox 03/18/25 07:35 36.4 C L 59 L 14 136/62 97 03/18/25 02:34 36.6 C 61 18 128/57 L 95 03/18/25 00:08 55 L 03/17/25 23:26 36.8 C 65 18 129/45 L 92 O2 Del Method 03/18/25 07:35 Room Air 03/18/25 02:34 Room Air 03/18/25 00:08 03/17/25 23:26 Room Air Laboratory Results 03/17/25 05:25 03/18/25 05:22
--- NOTE | 2025-03-18 12:47 | Hospitalist Progress Note ---
Date of Service March 18, 2025 Assessment & Plan (1) Left ventricular outflow obstruction: (2) Hyponatremia with decreased serum osmolality: (3) Aortic stenosis: (4) Acute deep vein thrombosis of left lower extremity: (5) Symptomatic bradycardia: (6) (HFpEF) heart failure with preserved ejection fraction: (7) Coronary artery disease: (8) CKD (chronic kidney disease) stage 3, GFR 30-59 ml/min: Plan Patient with severe bradycardia and hypotension in the setting of beta-regina use, aortic stenosis and left ventricular outlet obstruction. Patient has significantly improved with holding of the Coreg. Communication with Dr. Currie, due to patient's left ventricular outlet obstruction she really needs to be on a beta-regina. He wants to reintroduce a very low-dose Toprol XL. Will continue to monitor patient today after she receives medication and ended tomorrow to ensure that she does not have any recurrent severe bradycardia or hypotension. Reviewed nephrology recommendations. Recommending 1.8 L fluid restriction. Avoidance of thiazide diuretics. Recommending restarting ARB now that renal function has returned to baseline. Will restart valsartan at half dose in the setting of recent hypotension Sodium is significantly improved off the hydrochlorothiazide and with fluid restriction. Continue to monitor Monitor renal function in a.m. Anticipate patient will be discharged tomorrow if continues to do well, no significant bradycardia or hypotension. Admission and Anticipated Discharge Date Admission Date: March 14, 2025 Subjective Patient states she is feeling well. No lightheadedness or dizziness. No significant symptoms with orthostatic vital testing. Eager to get home. Physical Exam Physical Exam: Constitutional: Alert HEENT: Mucous membranes moist. Lungs: Clear to auscultation, decreased, no wheezes rales or rhonchi CV: S1-S2, regular, systolic murmur, bradycardic Abdomen: Soft, nontender, nondistended Extremities: No significant edema Neuro: No focal deficits Psych: Cooperative, normal mood Results & Data Results & Data Vital Signs (Past 12 Hours) Vital Signs Temp Pulse Resp BP BP Pulse Ox O2 Del Method 03/18/25 11:38 36.4 C L 65 16 151/66 H 96 Room Air 03/18/25 07:35 36.4 C L 59 L 14 136/62 97 Room Air 03/18/25 02:34 36.6 C 61 18 128/57 L 95 Room Air Diagnostic Findings Reviewed imaging, laboratory and diagnostic studies. Pertinent findings as below. Sodium 132 Creatinine 1.15, back to baseline
[2025-03-18] MEDS: METOPROLOL SUCC 25MG EXT REL TAB PO SCH (12:56)
--- NOTE | 2025-03-18 13:04 | Cardiology Progress Note ---
Date of Service March 18, 2025 Assessment & Plan (1) Chest pain: (2) SOB (shortness of breath): (3) Aortic stenosis: (4) (HFpEF) heart failure with preserved ejection fraction: (5) Coronary artery disease: (6) HTN (hypertension): (7) Dyslipidemia: Plan Assessment: 85 year old female who admitted to [facility] 03/14/25 for 3 weeks of increasing dyspnea on exertion and chest pain (pressure). Known history of moderate , hypertensive heart disease and LVOT obstruction (mild NOHEMI), mild MR. blood pressures borderline hypotensive on admission as well as heart rates noted to be in the 40's (30's during sleep). Plan: 1. chest pain 2. MATA 3. Moderate 4. 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 will likely introduce a very low dose of toprol xl (12.5mg PO Daily) while patient remains on telemetry given her LVOT gradients/NOHEMI -trace BLE edema, increased from yesterday per patient. will discuss with Dr. Currie consideration for addition of loop diuretic with close monitoring vs uptitration of current therapies. -Continue Imdur, Spironolactone, amlodipine and valsartan. 5. Sinus bradycardia -Near syncopal 03/16 with symptomatic bradycardia and rates in 30-40s -review of telemetry shows improvement in rates. Discussed case with Dr. Currie and will start Toprol xl 12.5mg PO Daily with close monitoring on telemetry -Plan for protracted cardiac monitoring OP with a 14 day zio. 7. Mild, non-obstructive CAD per cardiac catheterization (2011) -Exertional chest discomfort possibly secondary to progressive aortic stenosis and LVOT obstruction -Remains asymptomatic with no recurrent chest discomfort -EKG upon admission with no acute ischemic changes -High-sensitivity troponin negative 8. Acute DVT -Continue Eliquis as prescribed -Will defer to primary team for ongoing management Case has been discussed with Dr. Currie. Further recommendations regarding plan of care as per his assessment. I spent a total of 30 minutes on the date of service in preparation, delivery, documentation of the care provided to the patient excluding any time spent in the performance of separately billed services. MEDHAT Jha [facility] Cardiology [facility] Admission and Anticipated Discharge Date Admission Date: March 14, 2025 Supervising Physician Co-Signing Physician Notes Patient was seen and examined personally. Care and management as outlined by advanced provider as above. Discussed and personally endorsed. Patient feels "the best she has felt since being here" Bradycardia and hypotension has improved Valvular assessment demonstrates moderate aortic stenosis and no signs of congestive heart failure currently Recommendations as above will resume low-dose beta-regina with metoprolol succinate 12.5 mg/day. Continue to maintain telemetry given prior observed bradycardia arrhythmias. Hydrochlorothiazide discontinued Patient to continue on reduced dose amlodipine and valsartan Reduce isosorbide MN as well to 60 mg/day. Orders placed Subjective 03/18/25: Patient seen and examined in follow up today. Feeling well from a cardiac perspective today. Offers no acute concerns. Reports that her feelings of dizziness/lightheadedness have resolved. She is sitting out of bed in a chair at time of visit. Labs, vitals, diagnostics, telemetry and documentation reviewed. Telemetry reviewed showing SR with 1st degree AV Block. Rates in the 60's. Review of telemetry last evening shows heart rates typically into the 50's with a few rare beats into the 40's. Review of Systems Review of Systems: All systems reviewed & are unremarkable except as noted in HPI & below Physical Exam Constitutional: well developed and well nourished Neck: normal visual inspection and trachea midline Respiratory: normal respiratory effort, lungs clear to auscultation normal respiratory effort Cardiovascular: Rate/Rhythm: regular rate and regular rhythm Heart Sounds: normal S1 and + murmur (+2/6 systolic murmur) Vessels: dorsalis pedis pulses present; no JVD Extremities: + edema (trace BLE ) Skin: no rashes, warm and dry Psychiatric: A+Ox3, euthymic affect Results & Data Vital Signs (Past 12 Hours) Vital Signs Temp Pulse Resp BP BP Pulse Ox O2 Del Method 03/18/25 12:58 73 126/65 03/18/25 11:38 36.4 C L 65 16 151/66 H 96 Room Air 03/18/25 07:35 36.4 C L 59 L 14 136/62 97 Room Air 03/18/25 02:34 36.6 C 61 18 128/57 L 95 Room Air Laboratory Results Comprehensive Metabolic Panel 03/18/25 Range/Units 05:22 Sodium 132 L (136-145) mmol/L Potassium 4.3 (3.5-5.1) mmol/L Chloride 101 (98-107) mmol/L Carbon Dioxide 25 (21-32) mmol/L BUN 29 H (6-23) mg/dl Creatinine 1.15 (0.6-1.2) mg/dl Glucose 103 H (70-99(Fasting)) mg/dl Calcium 8.8 (8.6-10.3) mg/dl Intake and Output 03/17/25 03/18/25 03/18/25 22:59 06:59 14:59 Intake Total 100 / 1370 200 / 1370 Output Total Balance 100 / 1369 200 / 1369 - Intake: Oral 100 / 1120 200 / 1120 Output: # Bowel Movements Other: # Unmeasured Voids Weight 77.5 kg Weight Measurement Method Built in [facility] PG Care Time/CCT Total # of Minutes Spent Total Time Spent with Patient: Total time spent is greater than 50% in coordination of care (as documented) at patient's floor/unit and/or counseling patient: Coding Level of Care Code 67613 SUB INP/OBS CARE 3/50MIN Diagnoses Chest pain R07.9 Chest pain type: unspecified SOB (shortness of breath) R06.02 Aortic stenosis I35.0 (HFpEF) heart failure with preserved ejection fraction I50.30 Coronary artery disease I25.10 HTN (hypertension) I10 Dyslipidemia E78.5 Time Spent (min) 30 (1) Chest pain Chest pain type: unspecified Qualified Code(s): R07.9 - Chest pain, unspecified
[2025-03-18 19:54] VITALS: RESP 18
[2025-03-19 06:20] LABS: Anion Gap 5.0 (3-11); Blood Urea Nitrogen 29.0 mg/dl (6-23); Calcium 8.7 mg/dl (8.6-10.3); Carbon Dioxide 26.0 mmol/L (21-32); Chloride 103.0 mmol/L (98-107); Creatinine Clr Calc Pharmacy 43.6 ml/min; Glucose 99.0 mg/dl (70-99(Fasting)); Potassium 4.4 mmol/L (3.5-5.1); Sodium 134.0 mmol/L (136-145)
[2025-03-19 07:36] VITALS: O2SAT 97
[2025-03-19] MEDS: VALSARTAN 80 MG TAB PO SCH (09:27)
[2025-03-19] MEDS: ISOSORBIDE MONO EXTENDED REL 60 MG TABCR PO SCH (09:28)
--- NOTE | 2025-03-19 10:34 | Cardiology Progress Note ---
Date of Service March 19, 2025 Assessment & Plan (1) Chest pain: (2) SOB (shortness of breath): (3) Aortic stenosis: Plan: Moderate (4) (HFpEF) heart failure with preserved ejection fraction: (5) Coronary artery disease: (6) HTN (hypertension): (7) Dyslipidemia: Plan Assessment: 85 year old female who admitted to [facility] 03/14/25 for 3 weeks of increasing dyspnea on exertion and chest pain (pressure). Known history of moderate , hypertensive heart disease and LVOT obstruction (mild NOHEMI), mild MR. blood pressures borderline hypotensive on admission as well as heart rates noted to be in the 40's (30's during sleep). Plan: 1. chest pain 2. MATA 3. Moderate 4. 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 will likely introduce a very low dose of toprol xl (12.5mg PO Daily) while patient remains on telemetry given her LVOT gradients/NOHEMI -trace BLE edema, increased from yesterday per patient. -Continue Imdur, Spironolactone, amlodipine and valsartan. 5. Sinus bradycardia -Near syncopal 03/16 with symptomatic bradycardia and rates in 30-40s , Carvedilol discontinued -review of telemetry shows improvement in rates. Tolerating Toprol xl 12.5mg PO -Plan for protracted cardiac monitoring OP with a 14 day zio. 7. Mild, non-obstructive CAD per cardiac catheterization (2011) -Exertional chest discomfort possibly secondary to progressive aortic stenosis and LVOT obstruction -Remains asymptomatic with no recurrent chest discomfort -EKG upon admission with no acute ischemic changes -High-sensitivity troponin negative 8. Acute DVT -Continue Eliquis as prescribed -Will defer to primary team for ongoing management Case has been discussed with Dr. Currie. Further recommendations regarding plan of care as per his assessment. I spent a total of 30 minutes on the date of service in preparation, delivery, documentation of the care provided to the patient excluding any time spent in the performance of separately billed services. MEDHAT Jha [facility] 03/19/2025 Patient clinically improved since hospitalization with multifactorial complaints. Issues addressed as follows 1. Exertional fatigue and chest discomfort. No signs of myocardial infarction or injury. Echocardiogram with moderate aortic stenosis. Will complete evaluation with stress nuclear imaging post hospital discharge. 2. Moderate aortic stenosis 3. 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 Hyponatremia medication induced. Hydrochlorothiazide discontinued 5. Bradycardia: Carvedilol discontinued. Patient tolerating metoprolol succinate 12.5 mg daily. Plan outpatient ZIO Patient clinically improved since hospitalization with multiple adjustments in medical therapy. Note carvedilol and hydrochlorothiazide discontinued. Amlodipine dosing reduced to 5 mg/day. Valsartan reduced to 160 mg p.o. daily. Isosorbide mononitrate reduced to 60 mg p.o. daily. Metoprolol succinate 12.5 mg p.o. daily added to regimen. Caution patient to follow for signs of fluid retention given discontinuation of diuretic portion of therapies/CHF instruction Outpatient follow-up being arranged as above Admission and Anticipated Discharge Date Admission Date: March 14, 2025 Subjective Patient was seen and examined, chart, medications, telemetry reviewed No cardiac complaints. Ambulatory in hallway without difficulty this morning and last evening. Telemetry without bradycardia arrhythmias. Blood pressure well-controlled. Hyponatremia improved Review of Systems Review of Systems: All systems reviewed & are unremarkable except as noted in Subjective Physical Exam Constitutional: well developed and well nourished Eyes: PERRL, conjunctivae normal, anicteric sclerae ENMT: external ear and nose normal, oropharynx normal Neck: normal visual inspection and trachea midline Respiratory: normal respiratory effort, lungs clear to auscultation normal respiratory effort Cardiovascular: Rate/Rhythm: regular rate and regular rhythm Heart Sounds: normal S1 and + murmur (+2/6 systolic murmur) Vessels: dorsalis pedis pulses present; no JVD Gastrointestinal (Abdomen): normal bowel sounds, soft, nontender, no hepatosplenomegaly Musculoskeletal: no cyanosis or clubbing, extremities motor strength 5/5 Skin: no rashes, warm and dry Psychiatric: A+Ox3, euthymic affect Results & Data Vital Signs (Past 12 Hours) Vital Signs Temp Pulse Pulse Resp BP BP Pulse Ox 03/19/25 10:08 03/19/25 07:34 36.6 C 59 L 18 131/65 97 03/19/25 07:00 54 L 08/13/25 03:24 36.4 C L 57 L 18 134/62 94 03/18/25 23:00 50 L 03/18/25 22:39 36.4 C L 53 L 18 140/60 97 O2 Del Method 03/19/25 10:08 Room Air 03/19/25 07:34 Room Air 03/19/25 07:00 03/19/25 03:24 Room Air 03/18/25 23:00 03/18/25 22:39 Room Air Laboratory Results Laboratory Results - last 24 hr 03/19/25 05:22 Sodium 134 L Potassium 4.4 Chloride 103 Carbon Dioxide 26 Anion Gap 5 BUN 29 H Creatinine 0.97 Est Cr Clr Drug Dosing 43.6 eGFR 56.91 BUN/Creatinine Ratio 29.9 H Glucose 99 Calcium 8.7 PG Care Time/CCT Total # of Minutes Spent Total Time Spent with Patient: Total time spent is greater than 50% in coordination of care (as documented) at patient's floor/unit and/or counseling patient: Coding Level of Care Code 23697 SUB INP/OBS CARE 3/50MIN Diagnoses Chest pain R07.9 Chest pain type: unspecified SOB (shortness of breath) R06.02 Aortic stenosis I35.0 (HFpEF) heart failure with preserved ejection fraction I50.30 Coronary artery disease I25.10 HTN (hypertension) I10 Dyslipidemia E78.5 (1) Chest pain Chest pain type: unspecified Qualified Code(s): R07.9 - Chest pain, unspecified
[2025-03-19 11:10] VITALS: BP 142/57; TEMP 97.5
--- NOTE | 2025-03-19 13:19 | Discharge Summary ---
Date of Service March 19, 2025 Admission HPI Per Admitting Provider Ms. An is an 85 year old woman with past medical history remarkable for HFpEF, CKDIII, CAD, aortic valve stenosis, SVT, chronic back pain, recent right meniscus tear, GERD, anemia presented to [facility] ED due to three weeks of MATA and chest pain. Patient states she has been experiencing episodes of chest pain for a few weeks. She notes the pain to be like a pressure, but also every so often sharp and stabbing. She reports that intermittently these episodes also have diaphoresis and the sensation like she may faint; however, she has not. She reports intermittent palpitations. She does note that her right lower extremity has been swollen since her meniscal tear, but that her left leg is also swelling too in the last few weeks as well. . Last echo 03/2024 suggested moderate per cardio interpretation.Stress test 04/2023 normal. Her PCP did increase her Imdur from 60mg daily to 120mg daily with no clear reduction in symptoms. She denies fevers chills or other concerns. She reports she is otherwise fairly independent. She denies tobacco use, endorses occasional etoh, and denies illicits. In the ED, vitals were notable for BP of 110s-120s HR of 50s, and O2 sat of high 90s on room air Imaging revealed no pulm edema EKG QTc 397 sinus jose with AVblock ED interventions: asa 324, 250cc Patient to be admitted to [facility] for further evaluation and management of chest pain Admission Exam Per Admitting Provider GENERAL APPEARANCE: AxOx4, generally well-appearing female appears younger than stated age, no acute distress. HEENT: NC, AT. MMM. EOMI, clear conjunctiva, oropharynx clear. NECK: Supple without lymphadenopathy. No stiffness or restricted ROM. HEART: Normal rate and regular rhythm, normal S1/S1, no m/r/g LUNGS: CTAB, moving air well. No crackles or wheezes are heard. ABDOMEN: Soft, nontender, nondistended with good bowel sounds heard. BACK: No CVAT, no obvious deformity. EXTREMITIES: Without cyanosis, clubbing or edema. NEUROLOGICAL: Grossly nonfocal. Alert and oriented, moving all 4 extremities. CN not formally tested but appear grossly intact. Observed to ambulate with normal gait. Skin: Warm and dry without any rash. Principal Diagnosis Chest pain, symptomatic bradycardia, LV outflow obstruction, aortic stenosis Hyponatremia Acute DVT Discharge Exam Constitutional: WD/WN elderly F in NAD HEENT: NC/AT. Mucous membranes moist. Lungs: Clear to auscultation, decreased, no wheezes rales or rhonchi CV: S1-S2, regular, systolic murmur Abdomen: Soft, nontender, nondistended Extremities: No significant edema, moves extremities Neuro: awake, alert, speech fluent, no facial asymmetry, answers appropriately, moves extremities Psych: Cooperative, normal mood Discharge Data Allergies Allergy/AdvReac Type Severity Reaction Status Date / Time lidocaine Allergy Unknown Unknown - Unverified 03/14/25 17:54 On file w/ [facility] Consultations 03/14/25 16:37 ED Decision to Admit Stat 03/14/25 23:11 Consult Cardiology Routine Consult Nephrology Routine Ordered Studies 03/14/25 17:17 US venous doppler LE Urgent Findings: There is apparent occlusive thrombus in the left peroneal vein The bilateral common femoral, superficial femoral, popliteal, and right calf veins demonstrate normal anechoic lumens with full compressibility. Normal flow is seen on color Doppler images. Expected waveforms were produced with augmentation maneuvers Impression: 1. DVT in the left calf 2. No evidence of right leg deep venous thrombosis 03/14/25 18:29 CT for pulmonary embolism PE [CT angio chest PE protocol] Routine FINDINGS: Aorta and Great Vessels: Ascending Aorta: Normal in caliber, no aneurysm, dissection, or significant atherosclerosis. Aortic Arch: Normal in caliber, no aneurysm, dissection. Atherosclerotic changes, Descending Aorta: Normal in caliber, no aneurysm, dissection, or significant atherosclerosis. Pulmonary Arteries: The main pulmonary artery and its branches are patent. No evidence of pulmonary embolism or significant stenosis. Heart: Cardiac Chambers: Normal in size. No evidence of cardiomegaly. Pericardium: No pericardial effusion or thickening. Lungs and Pleura: Few nodules in the right lower lobe measuring up to 5mm. Lungs are clear without evidence of consolidation, collapse, or focal lesions. No pleural effusion. Right posterior pleural thickening. Mediastinum: No mediastinal mass or abnormal lymphadenopathy. Normal appearance of the trachea and central bronchi. Hiatal hernia with herniated proximal and mid stomach. Hilar Structures: Hilar structures are normal without enlargement. Chest Wall: No mass lesions or abnormalities in the chest wall. Vascular Structures: Superior Vena Cava: Patent without evidence of stenosis or thrombus. Inferior Vena Cava: Patent without evidence of stenosis or thrombus. Bones and Soft Tissues: No fractures, lytic, or blastic lesions of the visualized bony structures. Soft tissues are unremarkable. Degenerative changes in the spine. A 3.3 right renal cortical cyst. Small splenic calcification. IMPRESSION: 1. No evidence of pulmonary embolism. 2. Few pulmonary nodules in the right lower lobe measuring up to 5mm. No routine follow up if low risk as per Fleischner Society Guidelines. 3. No consolidation or pleural effusion. 4. Hiatal hernia. Hospital Course (1) Left ventricular outflow obstruction: (2) Hyponatremia with decreased serum osmolality: (3) Aortic stenosis: (4) Acute deep vein thrombosis of left lower extremity: (5) Symptomatic bradycardia: (6) (HFpEF) heart failure with preserved ejection fraction: (7) Coronary artery disease: (8) CKD (chronic kidney disease) stage 3, GFR 30-59 ml/min: Plan Patient with severe bradycardia and hypotension in the setting of beta-regina use, aortic stenosis and left ventricular outlet obstruction. Patient has significantly improved with holding of the Coreg. A very low-dose Toprol XL was started by cardiology. Her other medications were also changed/ adjusted - Note carvedilol and hydrochlorothiazide discontinued. Amlodipine dosing reduced to 5 mg/day. Valsartan reduced to 160 mg p.o. daily. Isosorbide mononitrate reduced to 60 mg p.o. daily. Metoprolol succinate 12.5 mg p.o. daily added to regimen. Reviewed nephrology recommendations. Recommending 1.8 L fluid restriction. Avoidance of thiazide diuretics. She will need BMP weekly x3 - to be ordered by PCP. -in the week before nephrology appt > nephrology nurse to order bmp, uacm, urine electrolytes, urine osms, serum osms, ACR Follow up appointments: - hospital discharge appointment Dr Cruz 2-4 weeks after hosp d/c in [facility]; bring home BP cuff to appt if pt has one Sodium is significantly improved off the hydrochlorothiazide and with fluid restriction. Continue to monitor, nephrology follow up as above. Total Time Total Time Spent Total Time Spent (In Minutes): 40 Discharge Plan Discharge Items Patient Disposition: Home - Self-Care Reason For Visit: CHEST PAIN Discharge Diagnosis: Chest pain, symptomatic bradycardia, LV outflow obstruction, aortic stenosis Hyponatremia Acute DVT Condition on Discharge: Fair Activity: Per Instructions section Non-emergency contact: Primary Care Provider, Specialist, Staff Nuclear Weapons Officer and Crayon Painter Call non-emergency contact if: you have any medication questions and your symptoms worsen Follow-up/Referrals: Enrrique Mcdowell DO [Staff Nuclear Weapons Officer] - (Date & Time 05/05/2025 2:30 PM Provider: Enrrique Mcdowell DO Cardiology, [facility] ) Meño Mcgovern PA-C [Primary Care Provider] - (Date & Time 03/24/2025 2:40 PM Provider: Meño Mcgovern PA-C [facility] [place] [place] ) Diet: Heart Healthy and Low Sodium (2gm) Fluids: 1800ml (7 cups) Addtl Attending Provider Instructions: Follow up with your primary care doctor, fire marshal, and cto (kidney doctor). Vasquez will need to get blood work weekly (BMP) for 3 weeks. Monitor your blood pressure at home and keep a log. Review your numbers with your health care providers. Your medications were changed / adjusted as follows : Carvedilol and hydrochlorothiazide were discontinued. Amlodipine dose reduced to 5 mg/day. Valsartan dose - 160 mg daily. Isosorbide mononitrate reduced to 60 mg p.o. daily. Metoprolol succinate 12.5 mg daily added to regimen. Addtl Family Day Care Worker Provider Instructions: Call your Primary Care doctor if any of the following symptoms or problems start or get worse: * Shortness of breath or difficulty breathing * Wake up at night short of breath * Chest pain * Cough * Swelling of your hands, feet, or legs * More fatigued or tired with your normal activity * Palpitations - sudden fast heart beats WEIGHT * Weigh yourself every morning after using the bathroom. * Use the same scale. * Wear the same amount of clothing. * Write your weight down on a chart. * Call your Primary Care doctor if you gain more than 2-3 pounds in 1-2 days. MEDICATIONS * Use this discharge instruction sheet for medication instructions. * Take your medications at the time your doctor ordered. * Do not skip a dose of your medicines. * If you miss a dose of medicine, take it as soon as possible, but DO NOT DOUBLE A DOSE. * Read your medicine information when you get home. * Know all of the side effects of your medicine. If in doubt, ask your pharmacist * Call your Primary Care doctor's office if you have any side effects. * Be sure all of your doctors know what medicine and herbs you take (including cold, flu, and herbal medicine). Take the following with you to your follow-up doctor appointments: * Weight Chart * Medication List * List of questions Do not drink excessive alcohol, beer or wine. Pending Studies at Discharge: No Stand-Alone Forms: My [facility] SpeakingPal, Smoking Cessation Medications and DC Order Prescriptions: New Eliquis 5 mg tablet See Rx Instructions .ROUTE .COMPLEX Qty: 74 0RF Rx Instructions: Take 2 tabs two times daily for 3 days then 1 tab two times daily continued amlodipine 5 mg Tablet 5 mg PO QAM Qty: 30 0RF atorvastatin 40 mg Tablet 40 mg PO QAM Qty: 30 0RF isosorbide mononitrate 60 mg Tablet Extended Release 24 Hr 60 mg PO QAM Qty: 30 0RF metoprolol succinate 25 mg Tablet Extended Release 24 Hr 12.5 mg PO QAM Qty: 30 0RF valsartan [Diovan] 80 mg Tablet 160 mg PO QAM Qty: 60 0RF Continued atorvastatin 40 mg tablet 40 mg PO QAM omeprazole 40 mg capsule,delayed release(DR/EC) 40 mg PO DAILYBB spironolactone 25 mg tablet 12.5 mg PO QAM duloxetine 30 mg capsule,delayed release(DR/EC) 30 mg PO DAILY Qty: 0 0RF Discontinued carvedilol 25 mg tablet 25 mg PO BIDWMEAL isosorbide mononitrate 120 mg tablet extended release 24 hr 120 mg PO QAM amlodipine 10 mg tablet 10 mg PO QAM valsartan-hydrochlorothiazide 320-25 mg tablet 1 tab PO QAM Discharge Orders: Discharge Order (Routine); Ordered 03/19/25 Ordered By: Garrett Jennings Admission Data Admit Date/Time: 03/14/25 17:34 Attending Provider: Garrett Jennings Admit Provider: Camryn Blas Primary Care Provider: Meño Mcgovern Other Providers: [place]; Yonis Cruz; Camryn Blas; Mark Diaz
[2025-03-19 14:01] VITALS: PULSE 58
[2025-03-19 15:57] LABS: Uric Acid, Random Urine 32 mg/dL (see note)
== END 2025-03-19 14:24 | disposition home or self-care (01) | DRG 315 ==
LOC: ED 14:05 → 4W 17:34 → SUATTDRO 17:34 → 4W 23:52